=== PATIENT | female | born 1990 | race Two or more races ===

== ENCOUNTER → 2017-08-08 15:00 | Outpatient (CLI) | payer SELFPAY ==
[2017-08-08 15:46] LABS: Hematocrit 40.5 % (37-47); Hemoglobin 12.9 g/dl (12.0-15.0); Mean Corp Hgb Conc 31.9 g/gl (32-36); Mean Corpuscular Hgb 29.2 pg (27.0-32.0); Mean Corpuscular Volume 91.6 fL (81-99); Mean Platelet Vol. 10.7 fl (6.2-12.0); Platelet Count 217 K/mm3 (150-450); RBC Distribution Width SD 43.7 fl (35.1-43.9); Red Blood Count 4.42 M/mm3 (4.2-5.4); White Blood Count 10.8 K/mm3 (4.4-11.0)
[2017-08-08 15:50] LABS: Scan Indicated on CBC? Y/N NO
[2017-08-08 16:16] LABS: Estradiol 28.7 pg/mL; Follicle Stimulating Hormone 5.3 mIU/mL; Prolactin 4.4 ng/mL; Thyroid Stim Hormone (TSH) 0.43 uIU/mL (0.358-3.74)
[2017-08-09 08:59] LABS: Progesterone Level 0.39 ng/mL (See Comment); T3 Total - Triiodothyronine 1.26 ng/mL (0.6-1.81); Vitamin D,25 Hydroxy 16.4 ng/mL (29.95-100.01)
[2017-08-10 05:08] LABS: DHEA Sulfate 238.5 ug/dL (84.8-378.0)
[2017-08-10 09:06] LABS: Sex Hormone-binding Globulin 84.4 nmol/L (24.6-122.0)
[2017-08-12 09:51] LABS: 17-Hydroxyprogesterone 26 ng/dL (.)
== END ==
LOC: LAB.FUTURE 15:21
PROVIDERS: Visit Provider Obstetrics & Gynecology
DX: N92.1 Excessive and frequent menstruation with irregular cycle (principal)
CPT/HCPCS: 36415; 82306; 82533; 82627; 82670; 83001; 83498; 84144; 84146; 84270; 84403; 84439; 84443; 84480; 85027; 82626

== ENCOUNTER → 2017-08-11 08:43 | Outpatient (CLI) | payer OTHER, SELFPAY ==
[2017-08-11 10:17] LABS: Glucose GTT-30 minutes 139 mg/dL (110-170)
[2017-08-11 10:19] LABS: Glucose GTT- Fasting 94 mg/dL (74-106)
[2017-08-11 11:25] LABS: Glucose GTT- 1 Hour 101 mg/dL (120-170)
[2017-08-11 12:03] LABS: Glucose GTT- 2 Hour 109 mg/dL (70-120)
[2017-08-11 13:27] LABS: Insulin 75GTT - 30 MIN 100.4 mU/L (Not Estab.)
[2017-08-12 06:12] LABS: Insulin 75GTT - Fasting 16.3 mU/L (2.6-37.6)
[2017-08-12 06:13] LABS: Insulin 75GTT - 120 min 55.9 mU/L (Not Estab.)
== END ==
PROVIDERS: Visit Provider Obstetrics & Gynecology
DX: N92.1 Excessive and frequent menstruation with irregular cycle (principal)
CPT/HCPCS: 36415; 82951; 82952; 83525

== ENCOUNTER 2017-11-27 16:03 | Emergency (ER) | payer OTHER, SELFPAY ==
[2017-11-27 16:04] VITALS: BP 125/78; PULSE 110; RESP 18; TEMP 37.1; O2SAT 98; BMI 34.4
[2017-11-27 17:18] VITALS: BP 115/78; PULSE 101; RESP 14; O2SAT 98
--- NOTE | 2017-11-27 17:21 | ED.VISSUMM ---
- ER Visit Summary Date of Service: 11/27/17 Chief Complaint: Earache, nasal congestion, postnasal drainage, sore throat and cough History of Present Illness: The patient is a 27 F who presents with upper respiratory type symptoms that started November 23Wednesday. Other family members were ill first. She is a smoker of 2 packs per day down to quarter pack a day. She is and states she is approximately 10 weeks gestation. She does not have a PCP but does have an support team assoc. She denies any double vision, blurred vision loss of vision. She denies any drooling, difficulty swallowing. She does report change in voice. Her cough is nonproductive. Please read written note for complete detail Physical Examination: Vital signs noted and heart rate is elevated 110. When I entered the room she was lying on her right side no distress. She does have a nasal sounding voice. Head is atraumatic normocephalic. Pupils equal round reactive. Extra muscle intact. Sclerae anicteric. Conjunctive is not injected. TMs are normal. There is patent with congestion and clear drainage. Posterior pharynx remarkable postnasal drainage. Uvula midline and there is no erythema or exudate. Trachea is midline without stridor. There is no cervical lymphadenopathy. Heart is regular without murmur, gallop or rub. Lungs are clear to auscultation. Test Results: None are indicated Emergency Department Course and Treatment: Patient was informed because she is a smoker she may have a cough for 4 weeks. She was told it is in her best interest as well as her fetuses best interest that she quit smoking. Treatment Plan: Symptomatic treatment and tobacco information Disposition: Discharged to home Impression: Acute viral upper respiratory infection This note was generated with [employer] dictation software. It may contain incorrect words, spelling, and punctuation that were not noted in review of the chart prior to signing ED Disposition - Plan for ED Patient: Disposition: Home or Assisted Living Chief Complaint: Cold Sx Instructions: ED Upper Resp Infec No Abx Tx, ED Smoking Cessation Referrals: Care Physician,No Primary [Primary Care Provider] - Alannah Zaldivar MD [STAFF PHYSICIAN] - As Needed Additional Instructions: Because you are a smoker you will have a cough for 4 weeks.
[2017-11-27 17:49] VITALS: BP 126/70; PULSE 80; RESP 14; O2SAT 98
== END 2017-11-27 17:50 | disposition home or self-care (01) ==
LOC: ED 17:42
PROVIDERS: Emergency Provider Emergency Medicine
DX: O26.891 Other specified pregnancy related conditions, first trimester (principal); J06.9 Acute upper respiratory infection, unspecified; O99.331 Smoking (tobacco) complicating pregnancy, first trimester; F17.200 Nicotine dependence, unspecified, uncomplicated; O99.211 Obesity complicating pregnancy, first trimester; Z3A.10 10 weeks gestation of pregnancy
CPT/HCPCS: 99282

== ENCOUNTER 2018-03-09 11:40 | Outpatient (CLI) | payer MEDICAID, SELFPAY ==
[2018-03-09 11:48] VITALS: BMI 34.7
[2018-03-09 12:28] LABS: Bacteria 0 SEEN /hpf (None Seen); Mucous, Urine 0 SEEN /hpf (<or=2+); Red Blood Cells-Urine 0 SEEN /hpf (0-5)
[2018-03-09 12:29] LABS: Color, Urine Yellow (Yellow); Glucose, Dipstick Normal (Normal); Ketone-Dipstick Negative (Negative); Leukocyte Esterase-Dipstick Negative /ul (Negative); Nitrite-Dipstick Negative (Negative); Occult Blood-Urine Negative /ul (Negative); Protein-Dipstick Negative (Negative); Specific Gravity, Urine 1.005 (1.002-1.030); Urine Bilirubin Dipstick Negative (Negative); Urine Clarity Sl. Cloudy (Clear); Urine Urobilinogen Normal (Normal)
[2018-03-09 12:39] LABS: Squamous Epithelial Cells - UA 0-5 SEEN /hpf (5-10); White Blood Cells 0-5 SEEN /hpf (0-5)
--- NOTE | 2018-03-10 08:40 | OB.TRI.HP_ITS ---
History of Present Illness Date of Service: 03/09/18 Was patient seen by the physician?: No Reason For Visit: R/O PRE TERM LABOR Date of Service: 03/09/18 Final SAPPHIRE: 06/21/18 Final SAPPHIRE Source: US <20 weeks Gestational age: 25 Weeks and 2 Days History of Present Illness: Complains of low back pain, headaches. Allergies cyclobenzaprine [From Flexeril] Adverse Reaction (Verified 03/09/18 11:54) Vomiting Laboratory Studies: Laboratory Tests 03/09/18 Range/Units 12:15 Urine Color Yellow (Yellow) Urine Clarity Sl. Cloudy (Clear) Urine pH 7.0 (5.0 - 8.0) Ur Specific [place] 1.005 (1.002-1.030) Urine Protein Negative (Negative) mg/dl Urine Glucose (UA) Normal (Normal) mg/dl Urine Ketones Negative (Negative) mg/dl Urine Occult Blood Negative (Negative) /ul Urine Nitrite Negative (Negative) Urine Bilirubin Negative (Negative) mg/dL Urine Urobilinogen Normal (Normal) mg/dl Ur Leukocyte Esterase Negative (Negative) /ul Urine RBC 0 SEEN (0-5) /hpf Urine WBC 0-5 SEEN (0-5) /hpf Ur Squamous Epith Cells 0-5 SEEN (5-10) /hpf Urine Bacteria 0 SEEN (None Seen) /hpf Urine Mucus 0 SEEN (<or=2+) /hpf Physical Exam General: Alert, Oriented x3, Cooperative, No apparent distress Cardiovascular: Regular rate, Regular Rhythm Lungs: Clear to auscultation, Normal air movement Abdomen: Soft, Non Tender, Non-Distended, Gravid, Appropriate for Gestational Age Extremities:: No edema Neurological: Neuro grossly intact COUNTER ATTENDANT: Normal external genitalia Estimated gestational size: Appropriate for gestational size Presentation: Cephalic Cervix Dilation (cm): 0 Station: -3 Effacement (%): 0 NST - FHR Rate Baby A Baseline: 130s Variability:: Moderate Accelerations:: 10 x 10 Decelerations:: None NST Reactive:: Yes, Appropriate for gestational age FHR Category:: Category I Uterine Activity:: None Impression/Plan Cervix closed, no signs of PPROM or contractions. UA negative for infection or blood. Reassuring NST. Headache not severe. Hx of migraines.
--- OUTSIDE RECORDS SUMMARY | 2018-04-25 15:16 | XMS RPT_ITS ---
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 ing:LAB.FUTUR Repository E 07/29/2017/07/31/[id number] Repository PAYERS PAYERS ENCOUNTER GUARANTOR PAYER SUBSCRIBER SOURCE 04/14/2018 ISRAEL Gilbert Primary ISRAELNOMAN Pulido [id number] N Insurance:[facility]: [facility] Number: [id number] [place], [id number] Repository [place] [address]Hzg: Date:2018-04-14[address]ATTN: CLAIMS () [place] [address]SL: 04/14/2018 Secondary NOT GIVENUNK Mears Insurance:SELF PAY [facility] Number: Effective Repository Date:2018-04-14 03/28/2018 ISRAEL M Primary ISRAEL Pulido [id number] N Insurance:[facility]: [facility] Number: [id number] [place], [id number] [place]ository [place] [address]Bqt: Date:2018-03-28 [address]ATTN: CLAIMS () [place] [address]NY: 03/28/2018 Secondary NOT GIVENUNK Ashok Insurance:SELF PAY [facility] Number: Effective Repository Date:2018-03-28 03/09/2018 ISRAEL M Primary ISRAEL Hunt Ashok [id number] N Insurance:CAR[facility]OURCEP [facility] Number: [id number] [place], [id number] Repository [place] [address]Sit: Date:2018-03-09 [address]ATTN: CLAIMS () [place] [address]LX: 03/09/2018 Secondary NOT GIVENUNK Mears Insurance:SELF PAY [facility] Number: Effective Repository Date:2018-03-09 11/27/2017 ISRAEL Hunt Primary ISRAEL Hunt Mears [id number] N Insurance:[employer] [facility] FRONTDOB: [place] [id number] [id number] [place], Number: [place]ository [place] [address]Vyd: [id number] Date:6529-64-87KY [address] () [id number], [place] [address]ZF: 11/27/2017 Secondary NOT GIVENUNK Mears Insurance:SELF PAY [facility] Number: Effective Repository Date:2017-11-27 08/11/2017 ISRAEL M Primary ISRAEL Hunt Mears [id number] N Insurance:[employer] HL[employer] FRONTZDOB: [facility] [address]Wsoade [id number] [place], Number: Repository [place] [address]Nxh: [id number] Date:9067-27-74MX [address] () [address]QSFDQON, [place] [address]QZ: 08/11/2017 Secondary NOT GIVENUNK Mears Insurance:SELF PAY [facility] Number: Effective Repository Date:2017-08-08 08/08/2017 ISRAEL M Primary NOT GIVENUNK Ashok [id number] N Insurance:SELF PAY [facility], Number: [facility] [place] [address]Wcd: Date:2017-08-08 ()
== END 2018-03-09 13:30 | disposition home or self-care (01) ==
LOC: WPOUT 11:46 → WP 11:47
PROVIDERS: Obstetrics & Gynecology; Referring Provider Obstetrics & Gynecology; Visit Provider Obstetrics & Gynecology
DX: O26.892 Other specified pregnancy related conditions, second trimester (principal); R51 Headache; Z3A.25 25 weeks gestation of pregnancy
CPT/HCPCS: 59050; 81001; 99218; G0378

== ENCOUNTER → 2018-03-28 08:47 | Outpatient (CLI) | payer MEDICAID, SELFPAY ==
[2018-03-09 11:48] VITALS: BMI 34.7
[2018-03-28 09:14] LABS: Mucous, Urine 0 SEEN /hpf (<or=2+); Red Blood Cells-Urine 0 SEEN /hpf (0-5); Squamous Epithelial Cells - UA 0 SEEN /hpf (5-10)
[2018-03-28 10:59] LABS: Color, Urine Yellow (Yellow); Glucose, Dipstick 50 mg/dl (Normal); Ketone-Dipstick Negative (Negative); Leukocyte Esterase-Dipstick 100 /ul (Negative); Nitrite-Dipstick Negative (Negative); Occult Blood-Urine Negative /ul (Negative); Protein-Dipstick Negative (Negative); Specific Gravity, Urine 1.015 (1.002-1.030); Urine Bilirubin Dipstick Negative (Negative); Urine Clarity Sl. Cloudy (Clear); Urine Urobilinogen Normal (Normal); Urine pH 6.5 (5.0 - 8.0)
[2018-03-28 10:59] LABS: Hematocrit 33.3 % (37-47); Hemoglobin 10.7 g/dl (12.0-15.0); Mean Corp Hgb Conc 32.1 g/gl (32-36); Mean Corpuscular Hgb 30.3 pg (27.0-32.0); Mean Corpuscular Volume 94.3 fL (81-99); Mean Platelet Vol. 11.4 fl (6.2-12.0); Platelet Count 195 K/mm3 (150-450); RBC Distribution Width CV 12.4 % (11.6-14.6); RBC Distribution Width SD 41.5 fl (35.1-43.9); Red Blood Count 3.53 M/mm3 (4.2-5.4); White Blood Count 11.7 K/mm3 (4.4-11.0)
[2018-03-28 11:00] LABS: Scan Indicated on CBC? Y/N NO
[2018-03-28 11:01] LABS: Bacteria 1+ /hpf (None Seen); Calcium Oxalate Crystals Ur RARE /hpf (<or=2+); Renal Epithelial Cells 0-5 SEEN /hpf (0-5); White Blood Cells 0-5 SEEN /hpf (0-5); Yeast-Urine RARE /hpf (None Seen)
[2018-03-28 11:02] LABS: Glucose Challenge Gest 1H 50g 127 mg/dL (70-140)
== END ==
PROVIDERS: Visit Provider Obstetrics & Gynecology
DX: O26.893 Other specified pregnancy related conditions, third trimester (principal); R30.0 Dysuria; Z3A.00 Weeks of gestation of pregnancy not specified
CPT/HCPCS: 36415; 81001; 82950; 85027; 87086; 87088

== ENCOUNTER → 2018-04-14 15:26 | Outpatient (CLI) | payer MEDICAID, SELFPAY ==
[2018-04-14 16:12] LABS: Protein, Urine (Random) 15.6 mg/dL (<11.9)
[2018-04-14 17:28] LABS: ALB/GLOB Ratio 0.6 RATIO (0.9-2.4); AST(SGOT) 8 U/L (15-37); Alanine Aminotransfer ALT/SGPT 11 U/L (13-56); Albumin, Serum 2.7 g/dL (3.2-5.0); Alkaline Phosphatase 107 U/L (45-117); Anion Gap 11 (5-15); BUN 4 mg/dL (7-18); BUN/Creat Ratio 7.5 RATIO (10-20); Calcium,Total 8.4 mg/dL (8.5-10.1); Chloride 107 mmol/L (98-107); Creatinine, Serum 0.53 mg/dL (0.55-1.02); EST Glomerular Filtration Rate 147 mL/min (>60); Est Glom Filt Rate - Afr Amer 178 mL/min (>60); Globulin 4.2 g/dL (2.2-4.2); Glucose 143 mg/dL (74-106); LDH 183 U/L (84-246); Potassium 3.5 mmol/L (3.5-5.1); Protein, Total 6.9 g/dL (6.4-8.2); Sodium Level 138 mmol/L (136-145); Uric Acid 3.1 mg/dL (2.6-6.0)
--- OUTSIDE RECORDS SUMMARY | 2018-06-19 11:05 | XMS RPT_ITS ---
:1990 Author Organization OHIP Support Name Relationship Address Phone MAURY PAYNE Unavailable [address] + [place] [address] [employer] Unavailable [address] + [place] [phone] MAURY PAYNE Unavailable [address] + [place] [address] [employer] Unavailable [address] + [place] [phone] MAURY PAYNE Unavailable [address] + [facility] [place] [address] [employer] Unavailable [address] + [place] [phone] MAURY PAYNE Unavailable [address] + [place] [address] [employer] Unavailable [address] + [place] [address] MAURY PAYNE Unavailable [address] + [place] [address] [employer] Unavailable [address] + [place] [phone] MAURY PAYNE Unavailable [address] [phone] [place] [address] [employer] Unavailable [address] + [place] [address] MAURY PAYNE Unavailable [address] [phone] [place] [address] [employer] Unavailable . +. [place] [address] Care Team Providers Name Role Phone CECILIA HOUSTON Attending Unavailable CECILIA HOUSTON Referring Unavailable Marianne Babcock Attending Unavailable Marianne Babcock Referring Unavailable Primay Care Physicia, No Primary Care Unavailable LiuFarzana, Summer Attending Unavailable Primay Care Physicia, No Primary Care Unavailable LiuKeira, Summer Attending Unavailable Primay Care Physicia, No Primary Care Unavailable KekealexBandar Attending Unavailable Primay Care Physicia, No Primary Care Unavailable Liu-Kenny, Summer Attending Unavailable DOCTOR, OUT OF TOWN Primary Care Unavailable LiuKeira, Summer Attending Unavailable Liu-Kenny, Summer Referring Unavailable Primay Care Physicia, No Primary Care Unavailable Primay Care Physicia, No Primary Care Unavailable Rios, Daniel Attending Unavailable PROBLEMS PROBLEMS DATE TYPE CONDITION / CODE ATTENDING STATUS SOURCE 04/14/2018 Unknown Z34.83 - Encounter Kayley, Active [place] for supervision of [facility] normal Hospital , third Repository trimester / Z34.83(ICD-10) 04/14/2018 Unknown R51 - Headache / Kayley, Active [place] R51(ICD-10) [facility] Hospital Repository 04/14/2018 Unknown O12.03 - Alexa-Kenny, Active [place] Gestational edema, [facility] third trimester / Hospital O12.03(ICD-10) Repository 04/14/2018 Unknown O21.1 - Kayley, Active [place] Hyperemesis [facility] gravidarum with Hospital metabolic Repository disturbance / O21.1(ICD-10) 03/28/2018 Unknown Z34.82 - Encounter Kayley, Active [place] for supervision of [facility] normal Hospital , second Repository trimester / Z34.82(ICD-10) 08/08/2017 Unknown N92.1 - Excessive Alexa-Kenny, Active [place] and frequent [facility] menstruation with Hospital irregular cycle / Repository N92.1(ICD-10) PROCEDURES PROCEDURES No Procedure Records FoundRESULTS RESULTS URINALYSIS, COMPLETE Collected: 04/20/2018 Status: F Source: [place] 7:35 PM [facility] REPOSITORY Order Comment: How was Urine Obtained? PRODUCTION EDITOR TO SPECIFY TYPE CODE TESTS RESULT OUT OF RANGE REFERENCE UNITS LAB L400.3000 Yellow COLOR Normal Yellow LAB L400.3050 Clear Normal CLARITY Clear LAB L400.3200 Normal mg/dl Normal GLUCOSE, UR Normal LAB L400.3300 Negative mg/dL Normal BILIRUBIN URINE Negative LAB L400.3400 Negative mg/dl High 50 KETONE UR LAB L400.3465 1.002-1.030 Normal SP.GR. DIPSTX 1.015 LAB L400.3550 5.0 - 8.0 pH UR Normal 6.5 LAB L400.3600 Negative mg/dl High PROT 15 DIPSTX LAB L400.3700 Normal mg/dl High 4 UROBILI LAB L400.3750 Negative Normal NITRITE UR Negative LAB L400.3780 Negative /ul Normal OCCULT BLOOD-UR Negative LAB L400.3800 Negative /ul High LEUK 25 ESTERASE LAB L400.4050 0-5 /hpf WBC 0 Normal SEEN LAB L400.4100 0-5 /hpf 0 Normal RBC-UA SEEN LAB L400.4150 5-10 /hpf SQUAM Normal EPI 0-5 SEEN LAB L400.4300 None Seen /hpf Normal BACTERIA RARE LAB L400.4350 <or=2+ /hpf 0 Normal MUCUS, URINE SEEN Performed By: #### L400.0001 #### [facility] [address] [place], [address] (ROM) RUPTURE OF Collected: 04/20/2018 Status: F Source: [place] [facility] 7:25 PM [facility] [place] TYPE CODE TESTS RESULT OUT OF RANGE REFERENCE UNITS LAB L205.1310 Negative Normal ROM Negative Result Comment: Amniotic fluid not present indicates No Rupture of Membranes at time of specimen collection. Performed By: #### L205.1000 #### [facility] [address] [place], [address] CREATININE, URINE Collected: 04/14/2018 Status: F Source: [place] (RANDOM) 2:30 PM [facility] [place] [facility] TYPE CODE TESTS RESULT OUT OF RANGE REFERENCE UNITS LAB L501.1200 NO RANGE EST. mg/dL Normal UR CREAT 107.00 Performed By: #### L501.1200, L501.1930 #### [facility] [address] [facility] [place], [address] PROTEIN, URINE Collected: 04/14/2018 Status: F Source: [place] (RANDOM) 2:30 PM [facility] [place] TYPE CODE TESTS RESULT OUT OF RANGE REFERENCE UNITS LAB L501.1930 <11.9 mg/dL High 15.6 PROTEIN,UR.R AN. Performed By: #### L501.1200, L501.1930 #### [facility] [address] [place], [place], [address] COMPREHENSIVE METABOLIC Collected: 04/14/2018 Status: F Source: [place] CROOKS 2:30 PM [facility] [place] Order Comment: Serial Specimen #1, #2 [...] Performed By: #### L500.4050, L501.1400, L504.2610 #### [facility] [address] [place], [address] URIC ACID Collected: 04/14/2018 Status: F Source: [place] 2:30 PM [facility] [place] Order Comment: Serial Specimen #1, #2 or #3? 1 TYPE CODE TESTS RESULT OUT OF RANGE REFERENCE UNITS LAB L501.1400 2.6-6.0 mg/dL Normal URIC 3.1 Result Comment: The drugs N-Acetylcysteine and Metamizole may falsely depress this assay. Performed By: #### L500.4050, L501.1400, L504.2610 #### [facility] [address] [place], [address] LDH Collected: 04/14/2018 Status: F Source: [place] 2:30 PM [facility] [place] Order Comment: Serial Specimen #1, #2 or #3? 1 TYPE CODE TESTS RESULT OUT OF RANGE REFERENCE UNITS LAB L504.2610 84-246 U/L Normal LDH 183 Performed By: #### L500.4050, L501.1400, L504.2610 #### [facility] [address] [place], [address] URINALYSIS, COMPLETE Collected: 03/28/2018 Status: F Source: [place] 9:00 AM [facility] [place] Order Comment: How was Urine Obtained? [...] YEAST-URINE RARE Performed By: #### L400.0001 #### [facility] [address] [place], [address] Observed: 03/28/2018 Status: F Source: [place] CULTURE, URINE 9:00 AM [facility] [place] [facility] Urine Culture ORGANISM 1: Mixed Gram Positive Organisms [place] Count 11,000-25,000 MIX CULTURE Mixed contaminants. Submit a new specimen if indicated. Performed By: #### M100.0650 #### [facility] [address] [place], [place], [address] CBC-COMPLETE BLOOD CNT Collected: 03/28/2018 Status: F Source: [place] NO DIFF 8:56 AM [facility] [place] TYPE CODE TESTS RESULT OUT OF [...] MPV 11.4 Performed By: #### L100.0500 #### [facility] [address] [place], [address] GLUCOSE CHALLENGE GEST Collected: 03/28/2018 Status: F Source: [place] 1H 50G 8:56 AM [facility] [place] TYPE CODE TESTS RESULT OUT OF RANGE REFERENCE UNITS LAB L501.0250 70-140 mg/dL Normal GLU GEST 127 50g 1H Performed By: #### L501.0250 #### [facility] [address] [place], [address] URINALYSIS, COMPLETE Collected: 03/09/2018 Status: F Source: [place] 12:15 PM [facility] [place] Order Comment: How was Urine Obtained? PRODUCTION EDITOR TO SPECIFY TYPE CODE TESTS RESULT OUT [...] URINE SEEN Performed By: #### L400.0001 #### [facility] [address] [place], [address] EMERGENCY DEPARTMENT Observed: 11/27/2017 Status: F Source: [place] SUMMARY 5:26 PM [facility] [place] [facility] Medical Records Department [address] [place] [address] Emergency Department Summary 11/27/17 1721 MR#: [id number] Acct: [id number] Name: ISRAEL PAYNE Rep #: [id number] : 1990 From: Daniel Rios MD PCP: [...] have a PCP but does have an cash applications specialist. She denies any double vision, blurred vision [...] respiratory infection This note was generated with [employer] dictation software. It may contain incorrect words, [...] your Primary Care Provider. Call [facility] ([phone]) or report to the closest Emergency Room. Call 911 if necessary. 11/27/17 1726 <Electronically signed by Daniel Rios MD> Date Daniel Rios MD Cosigner Signature (If Indicated): Date CC: No Primary Care Physician; Alannah Zaldivar MD 2 HR GLUCOSE TOLERANCE Collected: 08/11/2017 Status: F Source: [place] TEST 8:49 AM [facility] [place] Order Comment: Is Patient Fasting? Y [...] HOUR 109 Performed By: #### L500.4600 #### [facility] [address] [place], [place], [address] 2 HR INSULIN - 75 GM Collected: 08/11/2017 Status: F Source: [place] 8:49 AM [facility] [place] TYPE CODE TESTS RESULT OUT OF [...] Not Estab Performed By: #### L503.8055 #### [facility] [address] [place], [place], [address] CBC-COMPLETE BLOOD CNT Collected: 08/08/2017 Status: F Source: [place] NO DIFF 3:24 PM [facility] [place] TYPE CODE TESTS RESULT OUT OF [...] MPV 10.7 Performed By: #### L100.0500 #### [facility] [address] [place], [place], [address] THYROID STIM HORMONE Collected: 08/08/2017 Status: F Source: [place] (TSH) 3:24 PM [facility] [place] TYPE CODE TESTS RESULT OUT OF RANGE REFERENCE UNITS LAB L501.9520 0.358-3.74 uIU/mL Normal TSH 0.43 Performed By: #### L501.9520, L506.0400, L3100.5125, L3100.5420, L3300.1750 #### [facility] [address] [facility] [place], [address] T4 FREE DIRECT Collected: 08/08/2017 Status: F Source: [place] 3:24 PM [facility] [place] TYPE CODE TESTS RESULT OUT OF RANGE REFERENCE UNITS LAB L506.0400 0.76-1.46 ng/dL Normal T4 FREE 1.10 DIRECT Performed By: #### L501.9520, L506.0400, L3100.5125, L3100.5420, L3300.1750 #### [facility] [address] [facility] [address] [place], [place], [address] FOLLICLE STIMULATING Collected: 08/08/2017 Status: F Source: [place] HORMONE 3:24 PM [facility] [place] TYPE CODE TESTS RESULT OUT OF [...] #### L501.9520, L506.0400, L3100.5125, L3100.5420, L3300.1750 #### [facility] [address] [place], [address] PROLACTIN Collected: 08/08/2017 Status: F Source: [place] 3:24 PM [facility] [place] TYPE CODE TESTS RESULT OUT OF RANGE REFERENCE UNITS LAB L3100.5420 ng/mL Normal PROLACTIN 4.4 Result Comment: NORMAL REFERENCE RANGES FEMALE NON- 2.2 - 30.3 ng/mL 8.1 - 347.6 ng/mL POST-MENOPAUSAL 0.7 - 31.5 ng/mL MALE 2.5 - 17.4 ng/mL NEW TEST METHOD AND REFERENCE RANGES AUGUST 17, 2011 Performed By: #### L501.9520, L506.0400, L3100.5125, L3100.5420, L3300.1750 #### [facility] [address] [place], [address] ESTRADIOL Collected: 08/08/2017 Status: F Source: [place] 3:24 PM [facility] [place] TYPE CODE TESTS RESULT OUT OF [...] #### L501.9520, L506.0400, L3100.5125, L3100.5420, L3300.1750 #### [facility] [address] [place], [address] T3 TOTAL - TRIIODOTHYRONINE Collected: 08/08/2017 Status: F Source: [place] 3:24 PM [facility] [place] TYPE CODE TESTS RESULT OUT OF RANGE REFERENCE UNITS LAB L501.9186 0.6-1.81 ng/mL Normal T3 Total 1.26 Performed By: #### L501.9186, L506.1000, L509.3000, L509.4001, L509.6000 #### [facility] [address] [place], [address] VITAMIN D,25 HYDROXY Collected: 08/08/2017 Status: F Source: [place] 3:24 PM [facility] [place] TYPE CODE TESTS RESULT OUT OF REFERENCE UNITS RANGE LAB L506.1000 29.95-100.01 ng/mL Low Vitamin D 16.4 25-OH Result Comment: Vitamin D 25(OH) Status Range Deficiency <20 ng/mL (50nmol/L) Insuffciency 20 - 30 ng/mL (50 - 75 nmol/L) Sufficiency 30 - 100 ng/mL (75 - 250 nmol/L) Toxicity >100 ng/mL (>250 nmol/L) Performed By: #### L501.9186, L506.1000, L509.3000, L509.4001, L509.6000 #### [facility] [address] [place], [address] TESTOSTERONE, SERUM TOTAL Collected: 08/08/2017 Status: F Source: [place] 3:24 PM [facility] [place] TYPE CODE TESTS RESULT OUT OF [...] #### L501.9186, L506.1000, L509.3000, L509.4001, L509.6000 #### [facility] [address] [place], [address] PROGESTERONE LEVEL Collected: 08/08/2017 Status: F Source: [place] 3:24 PM [facility] [place] TYPE CODE TESTS RESULT OUT OF [...] #### L501.9186, L506.1000, L509.3000, L509.4001, L509.6000 #### [facility] [address] [place], [place], [address] CORTISOL SERUM Collected: 08/08/2017 Status: F Source: [place] 3:24 PM [facility] [place] TYPE CODE TESTS RESULT OUT OF RANGE REFERENCE UNITS LAB L509.6000 3.09-22.40 ug/dL Normal CORTISOL 8.70 Result Comment: Adult (AM) 4.30 - 22.40 ug/dL Adult (PM) 3.09 - 16.66 ug/dL Performed By: #### L501.9186, L506.1000, L509.3000, L509.4001, L509.6000 #### [facility] [address] [place], [place], [address] SEX HORMONE-BINDING Collected: 08/08/2017 Status: F Source: [place] GLOBULIN 3:24 PM [facility] [place] Order Comment: Has Patient had Radioactive Injection for X-ray?: N TYPE CODE TESTS RESULT OUT OF RANGE REFERENCE UNITS LAB L3100.5060 24.6-122.0 nmol/L Normal SHBG 84.4 Result Comment: Performed at: - [facility] [id number] Loss Prevention Coordinator: Chepe Laws PhD, Phone: [phone] Performed By: #### L31005060, Z1508.3859 #### [facility] (refer to report for specific site) refer to report for address and phone number DHEA SULFATE Collected: 08/08/2017 Status: F Source: [place] 3:24 PM [facility] [place] Order Comment: Has Patient had Radioactive Injection for X-ray?: N TYPE CODE TESTS RESULT OUT OF RANGE REFERENCE UNITS LAB L3300.1500 84.8-378.0 ug/dL Normal DHEA SULF 238.5 4020 Performed By: #### L3100.5060, L3300.1500 #### [facility] (refer to report for specific site) refer to report for address and phone number [phone] Collected: Status: F Source: [place] 08/08/2017 3:24 PM [facility] [place] [facility] Order Comment: Has Patient had Radioactive Injection for X-ray?: N TYPE CODE TESTS RESULT OUT OF RANGE REFERENCE UNITS LAB L3100.9000 . ng/dL Normal HYDROXPROG 17 26 Result Comment: Adult Female Follicular 15 - 70 Luteal 35 - 290 This test was developed and its performance characteristics determined by [employer]. It has not been cleared or approved by the Food and Drug Administration. Performed at: [address] [id number] Loss Prevention Coordinator: Jerome Poon MD, Phone: [phone] Performed By: #### L3100.9000 #### [facility] (refer to report for specific site) refer to report for address and phone number PROGRESS Observed: 07/29/2017 Status: COMPLETED Source: [place] 2:05 PM [facility] REPOSITORY HNO ID: [id number] Author: Cecilia Houston Service: (none) Author Type: Physician Type: Progress [...] Date - PAST SURGICAL HISTORY OF 11/2014 DANWV - TONSILLECTOMY AND ADENOIDECTOMY HX Social History [...] NAME / CODE REACTION SEVERITY SOURCE CODE 04/20/2018 Drug cyclobenzaprine/F0060 Vomiting Unknown [place] Allergy/41 [address](RXNORM) [facility] 3443221( Hospital OME CT) Repository 06/24/2015 DRUG CYCLOBENZAPRINE HCL Vomiting [facility] INGREDI/[address] [place] [address]( [facility] ENCOUNTERS ENCOUNTERS ADMIT/DISCHARGE ACCOUNT ADMITTING ENCOUNTER LOCATION SOURCE NUMBER CLASS 04/20/2018/04/20/[id number] ing:WPOUTRoom Repository : [id number] 04/14/2018 [id number] [facility] ing:LABSPEC Repository 03/28/2018 [id number] [facility] ing:WOBLAB Repository 03/09/2018/03/09/[id number] ing:WPOUTRoom Repository : WP020 11/27/2017/11/28/19 [id number] Emergency [address] ing:ED Repository 08/11/2017 [id number] [facility] ing:LAB.FUTUR Repository E 08/08/2017 [id number] [facility] ing:LAB.FUTUR Repository E 07/29/2017/07/31/19 [id number] Ambulatory [address] Repository PAYERS PAYERS ENCOUNTER GUARANTOR PAYER SUBSCRIBER SOURCE 04/20/2018 ISRAEL Hunt Primary ISRAEL O[place] [id number] Insurance:CARESOURCEP FRONTZDOB: [facility] Number: [id number] [id number] [place]ository [place] [address]Ugh: Date:2018-04-20[address]ATTN: CLAIMS () [place] [address]UU: 04/20/2018 Secondary NOT GIVENUNK [place] Insurance:SELF PAY [facility] Number: Effective Repository Date:2018-04-20 04/14/2018 ISRAEL Hunt Primary ISRAEL Gilbert [place] [id number] Insurance:CARESOURCEP FRONTZDOB: [facility] Number: [id number], [id number] Repository [place] [address]Wgo: Date:2018-04-14[address]ATTN: CLAIMS (HP) [place] [address]KP: 04/14/2018 Secondary NOT GIVENUNK [place] Insurance:SELF PAY [facility] Number: Effective Repository Date:2018-04-14 03/28/2018 ISRAEL M Primary ISRAEL Gilbert [place] [id number] Insurance:CARESOURCEP [facility] FLINTZDOB: [facility] Number: [id number], [id number] [place]ository [place] [address]Fiq: Date:2018-03-28 [address]ATTN: CLAIMS () [place] [address]VG: 03/28/2018 Secondary NOT GIVENUNK [place] Insurance:SELF PAY [facility] Number: Effective Repository Date:2018-03-28 03/09/2018 ISRAEL M Primary ISRAEL Gilbert [place] [id number] Insurance:CARESOURCEP FRONTZDOB: [facility] Number: [id number], [id number] Repository [place] [address]Gtg: Date:2018-03-09 [address]ATTN: CLAIMS (HP) [place] [address]MI: 03/09/2018 Secondary NOT GIVENUNK [place] Insurance:SELF PAY [facility] Number: Effective Repository Date:2018-03-09 11/27/2017 ISRAEL M Primary ISRAEL Gilbert [place] [id number] Insurance:[facility] FRONTZDOB: [facility] [address]Wmmumu [id number] Community Hospital, Number: Repository [place] [address]Igo: [id number] Date:7765-79-31[address] () [address], [place] [address]XM: 11/27/2017 Secondary NOT GIVENUNK [place] Insurance:SELF PAY [facility] Number: Effective Repository Date:2017-11-27 08/11/2017 ISRAEL Hunt Primary ISRAEL M [place] [id number] Insurance:[facility] FRONTZDOB: [facility] [address]Gcpolf [id number] Community Hospital, Number: Repository [place] [address]Stw: [id number] Date:4677-28-01[address] ) [address], [place] [address]FV: 08/11/2017 Secondary NOT GIVENUNK [place] Insurance:SELF PAY [facility] Number: Effective Repository Date:2017-08-08 08/08/2017 ISRAEL Hunt Primary NOT GIVENUNK [place] [id number] Insurance:SELF PAY [facility], Number: Effective Repository [place] [address]Hqj: Date:2017-08-08 (IB)
== END ==
PROVIDERS: Visit Provider Obstetrics & Gynecology
DX: O12.03 Gestational edema, third trimester (principal); O21.0 Mild hyperemesis gravidarum; O26.893 Other specified pregnancy related conditions, third trimester; R51 Headache; Z3A.00 Weeks of gestation of pregnancy not specified
CPT/HCPCS: 80053; 82570; 83615; 84156; 84550

== ENCOUNTER 2018-04-20 18:35 | Outpatient (CLI) | payer MEDICAID, SELFPAY ==
[2018-04-20 19:06] VITALS: BMI 35.1
[2018-04-20 19:40] LABS: Mucous, Urine 0 SEEN /hpf (<or=2+); Red Blood Cells-Urine 0 SEEN /hpf (0-5); White Blood Cells 0 SEEN /hpf (0-5)
[2018-04-20 19:55] LABS: ROM Internal Control Test YES-OK TO RESULT pt. (Internal QC); ROM Patient Test Negative (Negative)
[2018-04-20 19:59] LABS: Color, Urine Yellow (Yellow); Glucose, Dipstick Normal (Normal); Ketone-Dipstick 50 mg/dl (Negative); Leukocyte Esterase-Dipstick 25 /ul (Negative); Nitrite-Dipstick Negative (Negative); Occult Blood-Urine Negative /ul (Negative); Protein-Dipstick 15 mg/dl (Negative); Specific Gravity, Urine 1.015 (1.002-1.030); Urine Bilirubin Dipstick Negative (Negative); Urine Clarity Clear (Clear); Urine Urobilinogen 4 mg/dl (Normal); Urine pH 6.5 (5.0 - 8.0)
[2018-04-20 20:32] LABS: Bacteria RARE /hpf (None Seen); Squamous Epithelial Cells - UA 0-5 SEEN /hpf (5-10)
--- NOTE | 2018-04-21 00:29 | OB.TRI.HP_ITS ---
History of Present Illness Date of Service: 04/20/18 Was patient seen by the physician?: No Reason For Visit: R/O CONTRACTIONS Date of Service: 04/20/18 Final SAPPHIRE: 06/21/18 Final SAPPHIRE Source: US <20 weeks Gestational age: 31 Weeks and 2 Days History of Present Illness: Reports possible leaking of fluid from the vagina Allergies cyclobenzaprine [From Flexeril] Adverse Reaction (Verified 04/20/18 19:02) Vomiting Laboratory Studies: Laboratory Tests 04/20/18 04/20/18 Range/Units 19:35 19:25 Urine Color Yellow (Yellow) Urine Clarity Clear (Clear) Urine pH 6.5 (5.0 - 8.0) Ur Specific [place] 1.015 (1.002-1.030) Urine Protein 15 H (Negative) mg/dl Urine Glucose (UA) Normal (Normal) mg/dl Urine Ketones 50 H (Negative) mg/dl Urine Occult Blood Negative (Negative) /ul Urine Nitrite Negative (Negative) Urine Bilirubin Negative (Negative) mg/dL Urine Urobilinogen 4 H (Normal) mg/dl Ur Leukocyte Esterase 25 H (Negative) /ul Urine RBC 0 SEEN (0-5) /hpf Urine WBC 0 SEEN (0-5) /hpf Ur Squamous Epith Cells 0-5 SEEN (5-10) /hpf Urine Bacteria RARE (None Seen) /hpf Urine Mucus 0 SEEN (<or=2+) /hpf Vag Amniotic Fld Detect Negative (Negative) Physical Exam General: Alert, Oriented x3, Cooperative, No apparent distress Cardiovascular: Regular rate, Regular Rhythm Lungs: Clear to auscultation, Normal air movement Abdomen: Soft, Non Tender, Non-Distended, Gravid, Appropriate for Gestational Age Extremities:: No edema Neurological: Neuro grossly intact INSIDE SALES ADVISOR: Normal external genitalia Estimated gestational size: Appropriate for gestational size Presentation: Cephalic NST - FHR Rate Baby A Baseline: 130s Variability:: Moderate Accelerations:: 15 x 15 Decelerations:: None NST Reactive:: Yes, Appropriate for gestational age FHR Category:: Category I Uterine Activity:: none Impression/Plan ROM+ testing negative with no signs of PPROM. FHR tracing appropriate.
== END 2018-04-20 20:15 | disposition home or self-care (01) ==
LOC: WPOUT 18:39 → OBT 18:40
PROVIDERS: Visit Provider Obstetrics & Gynecology
DX: Z34.93 Encounter for supervision of normal pregnancy, unspecified, third trimester (principal)
CPT/HCPCS: 59025; 59050; 81001; 84112; 99218; G0378

== ENCOUNTER 2018-05-02 12:30 | Outpatient (RCR) | payer MEDICAID, SELFPAY ==
--- NOTE | 2018-04-28 11:34 | HP.PTEVAL ---
Patient's Visit Information ISRAEL PAYNE is a 28 year old F referred to Physical Therapy by Alannah Zaldivar MD with a diagnosis of Pelvic girdle apin. Date of Evaluation: 04/28/18 Physical Therapist: Tobin Mares DPT, OCS, CSCS - Visit Plan Frequency: 3x /Week Duration: 4-6 Weeks Plan: 3x/week for 3-6 weeks for pool based. core strength, HS and quad stretch, LB ROM and general ex. Monitor home based ext L/ S exercises and posture effect on pain. pt is at 32 weeks. - Subjective Findings: LBP and everything hurts. Has always had LBP, has bulging lumbar disc since 2014. Did water therapy at the time with her son. Now 32 weeks. Worse pain in LB for 3-4 months and been doing some things she can remember from the pool. Pain is in LB and 10/10, can be 0/10. Waking up in the morning will tell how she feels. Hips also hurt down back of legs normally from LB but worse intensity lately. 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 Spends day runniing after 10 yo and 3 yo. Sleep is not good as she is uncomfortable all the time, uses pillow between knees and under side. Has constant pelvic girdle pain in front from also, back pain is the worst part of it. - Pain LBP Pain Intensity (Out of 10): 0 Pain Intensity Range: 0, 10 - Objective Posture is forward head and slight increased lordosis. No tenderness to palpation in Low back tissue today. LB ROM ext painful and mod limited. Flexion is fulla nd painfree. SB are minimally limited and ewithout pain today. reflexes 2/3 patella and achilles. Sensation WNL to gross light touch in LE. Strength LE 4+/5 without myotomal abnormalities. Nothing increases any pelvic pain today as far as pressure testing at SI. - slump and - slr. core is 3+/5 strength. HS mod tight at -30 90/90 test. quads mod tight. - Goals Goal 1:: Patient feel pain 50% better to 5/10 at worst adn manageable. Goal Time Frame: 4-6 Weeks Goal 2:: patient I in approp HEP to minimize future problems. Goal Time Frame: 4-6 Weeks Goal 3:: Sleep without discomfort at night 75% of time. Goal Time Frame: 4-6 Weeks - Rehabilitation Potential Physical Therapy Diagnosis: LBP making it worse Rehabilitation Potential: Fair - Anticipated Interventions Patient/Client Instruction: Educate patient on: Condition, Plan of Care For the Purpose of:: To decrease pain, To increase ROM Therapeutic Exercise to Include: Strength training, Flexibilty training, In an aquatic setting, Passive ROM, Active ROM, Dynamic Lumbar Stabilization For the Purpose of:: To decrease pain, To improve nutrient delivery to tissue, To improve muscle performance and motor function, To improve ability of physical actions for home/community/work/leisure Thank you for the opportunity to evaluate your patient. For Medicare and Medicare HMO plans, please review the plan of care and approve it. It will need to be FAXED BACK to us at [phone] for Medicare purposes. For Medicare only, by signing this I certify the plan of care. Please let me know if there are questions or concerns regarding this plan of care. Physician Signature: Date:
--- NOTE | 2018-05-10 13:52 | HP.PTDCSUM ---
HP - PT D/C Summary It has been my pleasure to treat ISRAEL PAYNE under orders from Alannah Zaldivar MD, for the diagnosis of Pelvic girdle apin for a total of 2 visit(s). Discharge Date: 05/10/18 Please see the following information for a summary of their discharge status. - Subjective Subjective: Pt has called to cancel all appointments without reason given. - Pain LBP Pain Intensity (Out of 10): 6 pelvis pain Pain Intensity (Out of 10): 6 - Objective Objective/Function: pt is very painful today, moving slowly, FW bent posture. pt had significant pain reduction after being in the 6ft water. pt happy w/ the relief. - Goals Goal 1:: Patient feel pain 50% better to 5/10 at worst adn manageable. Goal 2:: patient I in approp HEP to minimize future problems. Goal 3:: Sleep without discomfort at night 75% of time. - Plan Plan: D/C at patients request. - D/C Information Discharge Comments: Pt has called to cancel all visits without reason, she has only attended one. If there are questions or concerns regarding this patient's physical therapy, please feel free to call me at [phone]. Thank you for the referral of this patient. Sincerely, Tobin Mares, DPT, OCS, CSCS
== END 2018-05-02 19:00 | disposition home or self-care (01) ==
LOC: PT 12:30
PROVIDERS: Referring Provider Obstetrics & Gynecology; Visit Provider Obstetrics & Gynecology
DX: O99.89 Other specified diseases and conditions complicating pregnancy, childbirth and the puerperium (principal)
CPT/HCPCS: 97113; 97162

== ENCOUNTER → 2018-05-12 14:31 | Outpatient (CLI) | payer MEDICAID, SELFPAY ==
[2018-04-20 19:06] VITALS: BMI 35.1
== END ==
PROVIDERS: Visit Provider Obstetrics & Gynecology
DX: Z36.85 Encounter for antenatal screening for Streptococcus B (principal)
CPT/HCPCS: 87081

== ENCOUNTER 2018-05-30 12:00 | Outpatient (CLI) | payer MEDICAID, SELFPAY ==
[2018-05-30 12:22] VITALS: BMI 35.3
[2018-05-30] MEDS: Betamethasone/Betamethasone 30 MG/5 ML Vial 12 MG IM (15:57)
--- NOTE | 2018-05-30 18:21 | OB.TRI.NOTE ---
- Problem List (1) with 36 to 37 weeks completed gestation Status: Acute (2) False labor before 37 completed weeks of gestation Status: Acute History of Present Illness Date of Service: 05/30/18 Was patient seen by the physician?: Yes Reason For Visit: R/O LABOR Final SAPPHIRE: 06/21/18 Final SAPPHIRE Source: US <20 weeks Gestational age: 36 Weeks and 6 Days History of Present Illness: 28yo @ 36 6/7wga sent from office for 4+ cm dilation and contractions. Allergies cyclobenzaprine [From Flexeril] Adverse Reaction (Verified 04/20/18 19:02) Vomiting Physical Exam DECORATOR STORE: Normal external genitalia Estimated gestational size: Appropriate for gestational size Presentation: Cephalic Cervix Dilation (cm): 4.5 Station: -3 Effacement (%): 70 NST - FHR Rate Baby A Baseline: 120 Variability:: Moderate Accelerations:: 15 x 15 Decelerations:: None NST Reactive:: Yes FHR Category:: Category I Uterine Activity:: 2-10 min Impression/Plan False labor at 36 6/7wga No cervical change consultant approximately 6 hours (including office exam) BMZ x 1 given Repeat BMZ tomorrow morning Will d/c home
--- NOTE | 2018-05-30 18:26 | OB.TRI.HP_ITS ---
- Problem List (1) with 36 to 37 weeks completed gestation Status: Acute (2) False labor before 37 completed weeks of gestation Status: Acute History of Present Illness Date of Service: 05/30/18 Was patient seen by the physician?: Yes Reason For Visit: R/O LABOR Final SAPPHIRE: 06/21/18 Final SAPPHIRE Source: US <20 weeks Gestational age: 36 Weeks and 6 Days History of Present Illness: 28yo @ 36 6/7wga sent from office for 4+ cm dilation and contractions. 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
== END 2018-05-30 17:50 | disposition home or self-care (01) ==
LOC: WPOUT 12:05 → OBT 12:05
PROVIDERS: Referring Provider Obstetrics & Gynecology; Visit Provider Obstetrics & Gynecology
DX: O47.03 False labor before 37 completed weeks of gestation, third trimester (principal); Z3A.36 36 weeks gestation of pregnancy; Z34.83 Encounter for supervision of other normal pregnancy, third trimester
CPT/HCPCS: 59025; 59050; 84112; 99218; G0378; J0702

== ENCOUNTER → 2018-05-30 12:07 | Outpatient (CLI) | payer MEDICAID, SELFPAY ==
[2018-05-30 12:42] LABS: ROM Internal Control Test YES-OK TO RESULT pt. (Internal QC); ROM Patient Test Negative (Negative); Record Kit Lot#, ROM+ J7836
== END ==
PROVIDERS: Visit Provider Obstetrics & Gynecology
DX: Z34.83 Encounter for supervision of other normal pregnancy, third trimester (principal)
CPT/HCPCS: 84112

== ENCOUNTER 2018-05-31 12:50 | Outpatient (CLI) | payer MEDICAID, SELFPAY ==
[2018-05-31 12:54] VITALS: BMI 35.1
[2018-05-31 12:59] VITALS: BMI 35.5
[2018-05-31] MEDS: Betamethasone/Betamethasone 30 MG/5 ML Vial 12 MG IM (13:12)
--- NOTE | 2018-06-01 08:02 | OB.TRI.PN ---
Progress Notes Date of Service: 05/31/18 Progress Note: 28yo @ 37 wga presenting for second dose of betamethasone for recent advanced cervical dilation and false labor. Betamethasone given and patient discharged to home.
== END 2018-05-31 13:35 | disposition home or self-care (01) ==
LOC: WPOUT 12:55 → WP 12:56
PROVIDERS: Referring Provider Obstetrics & Gynecology; Visit Provider Obstetrics & Gynecology
DX: O47.03 False labor before 37 completed weeks of gestation, third trimester (principal); Z3A.37 37 weeks gestation of pregnancy
CPT/HCPCS: 96372; 99218; G0378; J0702

== ENCOUNTER 2018-06-12 02:52 | Inpatient (IN) | payer MEDICAID, SELFPAY ==
[2018-06-12] MEDS: Lactated Ringers 1,000 ML 50 ML IV ×2 (03:10→06:33)
[2018-06-12 03:11] VITALS: BMI 34.9
[2018-06-12 03:22] LABS: Hematocrit 36.1 % (37-47); Hemoglobin 11.4 g/dl (12.0-15.0); Mean Corp Hgb Conc 31.6 g/gl (32-36); Mean Corpuscular Hgb 28.3 pg (27.0-32.0); Mean Corpuscular Volume 89.6 fL (81-99); Mean Platelet Vol. 10.6 fl (6.2-12.0); Platelet Count 229 K/mm3 (150-450); RBC Distribution Width CV 13.5 % (11.6-14.6); RBC Distribution Width SD 43.8 fl (35.1-43.9); Red Blood Count 4.03 M/mm3 (4.2-5.4); White Blood Count 15.7 K/mm3 (4.4-11.0)
[2018-06-12 03:28] LABS: ROM Internal Control Test YES-OK TO RESULT pt. (Internal QC); ROM Patient Test Negative (Negative); Record Kit Lot#, ROM+ J7836
[2018-06-12 03:29] LABS: Scan Indicated on CBC? Y/N NO
[2018-06-12 10:52] LABS: Amphetamine Urine VISTA NEGATIVE (<1000 ng/mL); Barbiturate Urine VISTA NEGATIVE (< 200 ng/mL); Benzodiazepine Urine VISTA NEGATIVE (< 200 ng/mL); Cocaine Urine VISTA NEGATIVE (< 300 ng/mL); Ecstacy Urine VISTA NEGATIVE (< 500 ng/mL); Methadone Urine VISTA NEGATIVE (< 300 ng/mL); PCP Urine VISTA NEGATIVE (< 25 ng/mL); THC Urine VISTA NEGATIVE (< 50 ng/mL); Vista UDS pH Range 6
[2018-06-12] MEDS: 0.9% Saline Lock 10 ML Syringe IV (11:36)
[2018-06-12] MEDS: Oxytocin 30 units/NS 500 ml 30 UNITS/500 ML IV.SOLN IV (11:37)
[2018-06-12] MEDS: Oxytocin 30 units/NS 500 ml 30 UNITS/500 ML IV.SOLN 334 UNITS IV (12:32)
--- NOTE | 2018-06-12 12:44 | PCM.OB.VAG ---
Vaginal Delivery Maternal Presentation: Active Labor Presented at 38w5d ega with contractions Amniotic Membrane Rupture Type: Artificial Rupture of Membrane time: 0800 Amniotic Fluid Description: Clear Final SAPPHIRE: 06/21/18 Final SAPPHIRE Source: US <20 weeks Gestational age: 38 Weeks and 5 Days Date of Procedure: 06/12/18 Pre-Operative Diagnosis: Labor Post-Operative Diagnosis: same Surgery/ Procedure Performed: Spontaneous Vaginal Delivery Type of Anesthesia: None Description of Procedure: Progressed rapidly from 8 cm to FD then precipitously delivered a live female . Nursing staff delivered baby with loose cord around the neck. The cord was clamped and cut and baby placed on mom's chest for skin to skin time. I delivered the placenta spontaneously intact with a centrally located 3VC. The uterus contracted well. The cervix, vagina, and perineum were intact. Presentation: Vertex Placental Delivery Description: Spontaneous Placenta Disposition: [facility] Percentage of Placenta Abruption: 0 Cord Vessel Description: 3 Vessels Nuchal Cord Compression: Without compression Cord Entanglement: Around neck x 1, loose Estimated Blood Loss: 300cc A gender: Female (1 minute): 8 (5 minute): 9 Episiotomy Description: None Laceration: None Medications given after delivery: IV Pitocin Complications: None
--- NOTE | 2018-06-12 12:53 | DCINST_ITS ---
Discharge Diet: No Restrictions Discharge Activity: Return to Normal Activity, May Drive, May Shower Return to work on:: 08/01/18 May shower in (days): 0 May resume sexual activity in: 4-6 weeks Call your doctor if your incision/area has: Sudden Increased Bleeding, Increased Pain/ Swelling, Foul Smelling Discharge Call your doctor if you observe: Fever of 101 or Higher, Inability to urinate, Inability to have a bowel movement, Using more than one pad per hour, Shortness of breath, Chest pain, Calf discomfort, Uncontrolled pain Cleanse incision/area with: Soap & Water Additional Instructions: If you experience any of the following, contact your healthcare provider. * Bleeding that soaks a pad every hour for 2 hours * Fever 100.4 or higher * Unrelieved incision or abdominal pain * Swelling, redness, discharge or bleeding from your incision or episiotomy site * Your incision begins to separate * Problems urinating (including inability to urinate or burning while urinating). * Visual changes * Severe headache * Flu-like symptoms * Pain or redness in one of both of your breasts * Pain, warmth, tenderness or swelling in your legs, especially the calf area * Frequent nausea and vomiting * Symptoms of depression or anxiety If you experience any of the following, call 911 or go to the nearest Emergency Room. * Chest pain * Problems breathing * Seizure activity * Partial or complete paralysis of a body part, slurred speech, weakness or drooping of the face, or a sudden inability to walk or hold your balance Allergies/Adverse Reactions: Allergies cyclobenzaprine [From Flexeril] Adverse Reaction (Mild, Verified 06/12/18 03:12) Vomiting Medications to take at Discharge Ibuprofen [Motrin] 600 mg PO Q6H PRN PRN #30 tab 06/12/18 The following prescriptions were given: Ibuprofen [Motrin] 600 mg PO Q6H PRN PRN #30 tab PRN Reason: pain or cramping Please Follow Up With: Alannah Zaldivar MD When: 6 weeks Primary Care Physician: Care Physician,No Primary [Primary Care Provider] - Test Results: Test results from this visit will be discussed in further detail at your follow- up appointment, if applicable. Proposed Discharge Date: 06/14/18
[2018-06-12] MEDS: Oxytocin 30 units/NS 500 ml 30 UNITS/500 ML IV.SOLN 167 UNITS IV (13:02)
[2018-06-12 16:30] VITALS: BP 105/57; PULSE 99; RESP 16; TEMP 36.6
[2018-06-12 19:45] VITALS: BP 104/62; PULSE 80; RESP 17; TEMP 36.5
[2018-06-12 23:30] VITALS: BP 107/54; PULSE 84; RESP 17; TEMP 36.2
[2018-06-13 04:20] VITALS: BP 103/55; PULSE 79; RESP 17; TEMP 36.3
[2018-06-13 06:59] LABS: Hematocrit 34.6 % (37-47); Hemoglobin 10.8 g/dl (12.0-15.0); Mean Corp Hgb Conc 31.2 g/gl (32-36); Mean Corpuscular Hgb 28.8 pg (27.0-32.0); Mean Corpuscular Volume 92.3 fL (81-99); Platelet Count 215 K/mm3 (150-450); RBC Distribution Width CV 13.6 % (11.6-14.6); RBC Distribution Width SD 43.8 fl (35.1-43.9); Red Blood Count 3.75 M/mm3 (4.2-5.4); White Blood Count 13.6 K/mm3 (4.4-11.0)
[2018-06-13 07:02] LABS: Scan Indicated on CBC? Y/N NO
--- NOTE | 2018-06-13 07:27 | PCM.PN.OB ---
Subjective: No specific complaints. Breast feeding. Objective: Afeb VSS Hgb stable PP day#1. - Physical Exam General: Alert, Oriented x3, Cooperative, No apparent distress Abdomen: Soft, Non Tender, Non-Distended Extremities: No edema Skin: No rashes Neurological: Neuro grossly intact Psych/Mental Status: Normal Affect Comment: Lochia appropriate Vital Signs Temp Pulse Resp BP 97.3 F L 79 17 103/55 L 06/13/18 04:20 06/13/18 04:20 06/13/18 04:20 06/13/18 04:20 Oxygen Delivery Method Room Air Weight: 203 lb 14.841 oz Body Mass Index (BMI) 34.9 Intake and Output for Last 24 Hours 06/11/18 06/12/18 06/13/18 23:59 23:59 23:59 Intake Total 1025 / 1025 Output Total 1100 / 1100 Balance -75 / -75 Laboratory Tests Past 24 Hrs 06/12/18 06/13/18 09:40 06:50 WBC 13.6 H RBC 3.75 L Hgb 10.8 L Hct 34.6 L MCV 92.3 MCH 28.8 MCHC 31.2 L RDW 13.6 RDW Differential 43.8 Plt Count 215 MPV 11.0 Urine Opiates Screen NEGATIVE Urine Methadone Screen NEGATIVE Ur Barbiturates Screen NEGATIVE Ur Phencyclidine Scrn NEGATIVE Ur Amphetamines Screen NEGATIVE U Methamphetamin-MDMA NEGATIVE U Benzodiazepines Scrn NEGATIVE Urine Cocaine Screen NEGATIVE U Cannabinoids Screen NEGATIVE Ur Drug Screen Comment Medical Necessity - Tobacco Use Smoking Status: Current every day smoker Assessment/Plan All Active Problems with 36 to 37 weeks completed gestation (Acute) False labor before 37 completed weeks of gestation (Acute) Doing well on PP day#1. Continue routine PP care.
[2018-06-13 08:11] VITALS: BP 95/55; PULSE 87; RESP 18; TEMP 36.4
[2018-06-13 09:36] VITALS: PULSE 87; RESP 18
[2018-06-13 11:20] VITALS: BP 108/55; PULSE 87; RESP 18; TEMP 36.6
[2018-06-13] MEDS: Dibucaine 30 GM Tube 1 APPLIC TOPICAL (12:26)
--- NOTE | 2018-06-13 12:38 | PCM.PN.OB ---
Patient Problems: Active and Suspected Problems (spontaneous vaginal delivery) (Acute) Subjective: No issues overnight. Denies heavy lochia. Feels well and desires discharge home. Infant nursing well. Objective: avss - Physical Exam General: Alert, No apparent distress HEENT: Atraumatic, Normocephalic Lungs: Normal air movement Cardiovascular: Regular rate, Regular Rhythm, Normal S1, Normal S2, No murmurs Abdomen: Soft, Non Tender, Non-Distended, - - fundus firm and nontender Extremities: No edema, No Calf Tenderness Psych/Mental Status: Alert and oriented to time, place, person, mood and affect Vital Signs Temp Pulse Resp BP 97.9 F 87 18 108/55 L 06/13/18 11:20 06/13/18 11:20 06/13/18 11:20 06/13/18 11:20 Oxygen Delivery Method Room Air Weight: 92.5 kg Body Mass Index (BMI) 34.9 Intake and Output for Last 24 Hours 06/11/18 06/12/18 06/13/18 23:59 23:59 23:59 Intake Total 1025 / 1025 Output Total 1100 / 1100 Balance -75 / -75 Laboratory Tests Past 24 Hrs 06/13/18 06:50 WBC 13.6 H RBC 3.75 L Hgb 10.8 L Hct 34.6 L MCV 92.3 MCH 28.8 MCHC 31.2 L RDW 13.6 RDW Differential 43.8 Plt Count 215 MPV 11.0 Medical Necessity - Tobacco Use Smoking Status: Current every day smoker Assessment/Plan All Active Problems (spontaneous vaginal delivery) (Acute) 28yo P3 PPD#1 s/p doing well. -Rh positive - -Discussed PPBC - interval sterilization planned -d/c home today
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
--- NOTE | 2018-06-13 13:18 | NURSING ---
this nurse reviewed the charting completed by the student nurse, Anahi Fritz and it is correct.
--- NOTE | 2018-06-21 17:39 | NURSING ---
Mother doing well on follow up phone call. States baby eating well but she has cut the dairy in her diet. States the nurses were all great and riccardo were great baby catchers.
--- NOTE | 2018-07-07 16:13 | CASEMGMT ---
Addendum entered and electronically signed by Analilia Mckeon 08/11/18 16:22: Reviewed and approve BUSINESS BANKING MANAGER student documentation below. -CHLOE ORONA-Abraham, RAW STOCK DYEING MACHINE TENDER Original Note: Social Work Labor and Delivery Baby's meconium returned positive. Report made to [facility] at [phone] and spoke with Jennifer. No other services indicated or requested at this time. -Sherie Villanueva, BUSINESS BANKING MANAGER Student Regulatory Lead.
== END 2018-06-13 14:40 | disposition home or self-care (01) | DRG 560 ==
LOC: WPOUT 02:53
PROVIDERS: Admitting Provider Obstetrics & Gynecology; Referring Provider Obstetrics & Gynecology; Visit Provider Obstetrics & Gynecology
DX: O69.81X0 Labor and delivery complicated by cord around neck, without compression, not applicable or unspecified (principal); Z3A.38 38 weeks gestation of pregnancy; Z37.0 Single live birth; O99.334 Smoking (tobacco) complicating childbirth
CPT/HCPCS: 59025; 59050; 80307; 84112; 85027; 86850; 86900; 99218; J7120; A4216; G0378

== ENCOUNTER → 2018-08-01 | Outpatient (CLI) | payer MEDICAID, SELFPAY | END | disposition home or self-care (01) | LOC: LABSPEC 13:05 | PROVIDERS: Visit Provider Obstetrics & Gynecology | DX: R30.0 Dysuria (principal) | CPT/HCPCS: 87077; 87086; 87088; 87186 ==

== ENCOUNTER 2018-09-07 08:08 | Day surgery (SDC) | payer MEDICAID, SELFPAY ==
[2018-09-01 17:05] LABS: Hematocrit 37.6 % (37-47); Mean Corp Hgb Conc 31.9 g/gl (32-36); Mean Corpuscular Hgb 28.8 pg (27.0-32.0); Mean Corpuscular Volume 90.2 fL (81-99); Mean Platelet Vol. 10.6 fl (6.2-12.0); Platelet Count 224 K/mm3 (150-450); RBC Distribution Width CV 14.7 % (11.6-14.6); RBC Distribution Width SD 48.8 fl (35.1-43.9); Red Blood Count 4.17 M/mm3 (4.2-5.4); White Blood Count 9.9 K/mm3 (4.4-11.0)
[2018-09-01 17:06] LABS: Scan Indicated on CBC? Y/N NO
[2018-09-01 17:09] LABS: International Normalized Ratio 1.1; Prothrombin Time (Protime)PT. 13.7 SECONDS (11.7-14.9)
[2018-09-01 17:10] LABS: Partial Thromboplast Time 28.1 Seconds (24.1-36.2)
[2018-09-01 17:32] LABS: Internal QC Validated? YES +Cl - CLEAR BKGD; Pregnancy, Serum, hCG Quali. NEGATIVE Negative
[2018-09-07 08:29] VITALS: BP 103/69; PULSE 77; RESP 16; TEMP 36.4; O2SAT 100; BMI 34.0
[2018-09-07 08:29] LABS: Internal QC Validated? YES +Cl - CLEAR BKGD; Pregnancy, Urine Negative Negative
--- NOTE | 2018-09-07 09:53 | DCINST_ITS ---
You will use the following diet at home:: No restrictions Your food should be the consistency of: Regular Discharge Activity: Return to Normal Activity, May Drive, May not drive while taking narcotic pain medications., May Shower Return to work on:: 09/12/18 May shower in (days): 0 May resume sexual activity in: 2 weeks Call your doctor if your incision/area has: Sudden Increased Bleeding, Increased Pain/ Swelling, Increased Redness, Foul Smelling Discharge, Swelling at the incision site Call your doctor if you observe: Fever of 101 or Higher, Inability to urinate, Inability to have a bowel movement, Using more than one pad per hour, Shortness of breath, Chest pain, Calf discomfort, Uncontrolled pain Remove Dressing in (days):: 2 Cleanse incision/area with: Soap & Water Allergies/Adverse Reactions: Allergies cyclobenzaprine [From Flexeril] Adverse Reaction (Mild, Verified 08/31/18 14:20) Vomiting Medications to take at Discharge Ibuprofen 600 mg PO 4X/DAY #30 tab 09/07/18 Oxycodone [Oxyir] 5 mg PO Q4H PRN PRN 7 Days #20 tab 09/07/18 The following prescriptions were given: Oxycodone [Oxyir] 5 mg PO Q4H PRN PRN 7 Days #20 tab PRN Reason: Severe Pain (6-10/10) Ibuprofen 600 mg PO 4X/DAY #30 tab Primary Care Physician: Care Physician,No Primary [Primary Care Provider] - Test Results: Test results from this visit will be discussed in further detail at your follow- up appointment, if applicable. Please Follow Up With: Bandar Moore MD When: one week Proposed Discharge Date: 09/07/18
--- NOTE | 2018-09-07 10:00 | FALS_PTH ---
PATIENT: ISRAEL PAYNE [place]: [facility] U#:[id number] AGE/SX: 28/F ROOM: RE09/07/[address]: Dr. Bandar [place] MD : 1990 BED: DIS: 09/07/2018 SPEC #: [id number] RECD: 09/07/18 11:32 STATUS: VITOR CHEVY #: [id number] DIAMANTE: 09/07/18 10:[address]: Bandar Moore DEPT: SURGICAL PATHOLOGY RECD BY: Delbert Olguin ENTERED: 09/07/18 14:08 SP TYPE: FALL TUBES OTHR DR: No Primary Care Phys Tissues: Fallopian tube Procedures: Surgery Specimen Level II HEADER OPERATION: Laparoscopic salpingectomy PRE-OP DIAGNOSIS: Requests sterilization TISSUE SUBMITTED: Bilateral fallopian tubes MICROSCOPIC DIAGNOSIS Right and left fallopian tubes, bilateral salpingectomies: Two complete segments of fallopian tubes with no pathologic change. AM:sarina 09/08/18 MICROSCOPIC DESCRIPTION Slides are reviewed. GROSS DESCRIPTION Received is one container labeled with the patient's name and designated bilateral fallopian tubes. The specimen consists of bilateral fallopian tubes including fimbrial ends measuring 7.5 cm in length and 0.5 cm in diameter and 4 cm in length and 0.5 cm in diameter. Sections do not reveal any mass lesion. The fallopian tubes are not identified as right or left. Sections reveal unremarkable cut surfaces. Also present in the container are a few detached pieces of soft tissue consisting of portion of fallopian tube including fimbrial end measuring 2 x 0.8 x 0.4 cm. These pieces are inked black. Battery Container Tester Aluminum sections are submitted in two cassettes as follows: 1 - one fallopian tube, 2 - second fallopian tube including detached pieces of tissue. / SJ:sarina 09/07/18 TC:4 CPT: 11598 x2
--- NOTE | 2018-09-07 10:20 | PCM.OPRPT ---
Report of Operation Date of Procedure: 09/07/18 Pre-Operative Diagnosis: Requests Permanent Sterilization Post-Operative Diagnosis: Same Surgery/Procedure Performed:: Laparoscopic Bilateral Salpingectomy Description of Surgical Findings:: Normal appearing uterus, ovaries, and fallopian tubes. Liver appeared to have fatty changes. Normal gallbladder and stomach. manufacturing engineering director: Nicanor Wang Type of Anesthesia:: General Anesthesiologist: Rocco Beatty Special Medications: none Specimen's removed: Right and left fallopian tubes Drains: none Estimated Blood Loss (mL): minimal Fluids Replaced: 600cc LR Description of Procedure: Rose was taken to the OR with IV running. She reconfirmed desire for permanent sterilization prior to the procedure. She was given two grams of Cefotetan for surgical prophylaxis prior to the case. General anesthesia was induced without complication. She was then prepped and draped in the dorsal lithotomy position. The bladder was drained. A [place] type uterine manipulator was placed. Attention was then directed to the abdomen where a 5mm vertical incision was made in the lower base of the umbilicus. The underlying subcutaneous tissue was then bluntly dissected down to the level of the fascia. The abdominal wall was then elevated and a Veress needle was placed though the umbilical incision into the abdominal cavity. The abdomen was then inflated to 15 Torr pressure with CO2 gas. The Veress needle was removed and replaced with a 5mm laparoscopic trocar and sleeve. The trocar was removed and the laparoscope was placed. Findings were as mentioned above. Two 5mm lateral laproscopic ports were then placed one on the left and one on the right about 4 cm below the level of the umbilicus lateral to the inferior epigastric vessels. The left fallopian tube was then grasped at the fimbriated end elevated and using the Ligasure device the mesosalpinx was dissected from the fimbriated end to the cornua of the uterus. The tube was then amputated at the cornua and removed through the right laparoscopic port. In a similar fashion the right tube was removed. Hemostasis was excellent. The laparoscopic ports were then removed and the gas evacuated from the abdomen. The uterine manipulator was removed. The skin incisions were closed with 4-0 Monocryl suture and injected with 0.25% Marcaine. She was reversed from anesthesia and taken to the recovery room in stable condition. Sponge, needle and instrument counts were correct. Grafts/Implants Used: none - Complications none - Admit VTE Documentation VTE Present on Admission: No VTE Mechan Device Prophylaxis: SCD's VTE Pharm Prophylaxis ordered?: No
[2018-09-07] MEDS: Bupivacaine 0.25% 30 ML Vial (10:21)
[2018-09-07 10:32] VITALS: BP 103/69; BP 116/82; PULSE 70; RESP 16; TEMP 36.3; O2SAT 100
--- NOTE | 2018-09-07 10:32 | OP.PCM_ITS ---
Report of Operation Date of Procedure: 09/07/18 Pre-Operative Diagnosis: Requests Permanent Sterilization Post-Operative Diagnosis: Same Surgery/Procedure Performed:: Laparoscopic Bilateral Salpingectomy Description of Surgical Findings:: Normal appearing uterus, ovaries, and fallopian tubes. Liver appeared to have fatty changes. Normal gallbladder and stomach. dimpling machine operator: Nicanor Wang Type of Anesthesia:: General Anesthesiologist: Rocco Beatty Special Medications: none Specimen's removed: Right and left fallopian tubes Drains: none Estimated Blood Loss (mL): minimal Fluids Replaced: 600cc LR Description of Procedure: Rose was taken to the OR with IV running. She reconfirmed desire for permanent sterilization prior to the procedure. She was given two grams of Cefotetan for surgical prophylaxis prior to the case. General anesthesia was induced without complication. She was then prepped and draped in the dorsal lithotomy position. The bladder was drained. A [place] type uterine manipulator was placed. Attention was then directed to the abdomen where a 5mm vertical incision was made in the lower base of the umbilicus. The underlying subcutaneous tissue was then bluntly dissected down to the level of the fascia. The abdominal wall was then elevated and a Veress needle was placed though the umbilical incision into the abdominal cavity. The abdomen was then inflated to 15 Torr pressure with CO2 gas. The Veress needle was removed and replaced with a 5mm laparoscopic trocar and sleeve. The trocar was removed and the laparoscope was placed. Findings were as mentioned above. Two 5mm lateral laproscopic ports were then placed one on the left and one on the right about 4 cm below the level of the umbilicus lateral to the inferior epigastric vessels. The left fallopian tube was then grasped at the fimbriated end elevated and using the Ligasure device the mesosalpinx was dissected from the fimbriated end to the cornua of the uterus. The tube was then amputated at the cornua and removed through the right laparoscopic port. In a similar fashion the right tube was removed. Hemostasis was excellent. The laparoscopic ports were then removed and the gas evacuated from the abdomen. The uterine manipulator was removed. The skin incisions were closed with 4-0 Monocryl suture and injected with 0.25% Marcaine. She was reversed from anesthesia and taken to the recovery room in stable condition. Sponge, needle and instrument counts were correct. Grafts/Implants Used: none - Complications none - Admit VTE Documentation VTE Present on Admission: No VTE Mechan Device Prophylaxis: SCD's VTE Pharm Prophylaxis ordered?: No
[2018-09-07 10:45] VITALS: BP 103/69; BP 125/82; PULSE 71; RESP 16; TEMP 36.6; O2SAT 100
[2018-09-07 11:09] VITALS: BP 103/69
== END 2018-09-07 11:10 | disposition home or self-care (01) ==
LOC: SDC 08:10 → AC 08:11
PROVIDERS: Anesthesiology; Referring Provider Obstetrics & Gynecology; Visit Provider Obstetrics & Gynecology
PROC: (CPT 58661; principal; 2018-09-07 09:45)
DX: Z30.2 Encounter for sterilization (principal); F17.210 Nicotine dependence, cigarettes, uncomplicated
CPT/HCPCS: 00840; 58661; 36415; 81025; 84703; 85027; 85610; 85730; 86850; 86900; 88302; J7120; J2405

== ENCOUNTER 2020-01-06 21:21 | Emergency (ER) | payer OTHER, MEDICAID, SELFPAY ==
[2020-01-06 21:22] VITALS: BP 126/73; PULSE 98; RESP 20; TEMP 36.2; O2SAT 98; BMI 33.2
--- NOTE | 2020-01-06 22:12 | ED.VIS.GEN ---
History of Present Illness Chief Complaint: Shortness of Breath Informant: Patient Narrative: 29-year-old female with history of asthma is presenting for cough and nasal congestion for 3 days. She has no exposure to COVID?19 that she knows of. She states that her child who goes to school has a cough and cold. Otherwise the child is doing well. She denies fever, chills, myalgias, loss of taste or smell. She does not have shortness of breath. Her only complaint is cough and nasal congestion. She does have history of seasonal allergies and takes medication for this. She has history of asthma as well but states he has not been wheezing or short of breath. Denies chest pain. Past Medical History - Allergies and Home Meds Allergies/Adverse Reactions: Allergies cyclobenzaprine [From Flexeril] Adverse Reaction (Mild, Verified 08/31/18 14:20) Vomiting Primary Care Physician: Care Physician,No Primary [Primary Care Provider] - Prior records reviewed: Yes Past Medical History: - - Asthma Surgical History: noncontributory Lives: Spouse/ Significant Other Smoking Status: Current every day smoker Alcohol: None Drugs: None Review of Systems General: Denies: Chills, Fever, Malaise Eyes: Denies: Visual changes - bilaterally, Diplopia ENT: Reports: - - No loss of taste or smell. Denies: Rhinorrhea, Sore throat Cardiovascular: Denies: Chest pain, Palpitations Respiratory: Reports: Cough. Denies: Sputum Gastrointestinal: Denies: Abdominal pain, Nausea, Vomiting Genitourinary: Denies: Dysuria, Hematuria Musculoskeletal: Denies: Myalgias, Arthralgias Skin: Denies: Rash, Abscess Neurological: Denies: Headache, Weakness Physical Exam Vital Signs/Narrative: Vital Signs Temp Pulse Resp BP Pulse Ox 01/06/20 21:22 97.1 F L 98 20 H 126/73 H 98 Inital Vital Signs reviewed: Yes General: Well nourished, No Acute Distress Head: Normocephalic, Atraumatic Eyes: Perrl, EOMI ENT: Nasal congestion, - - Rhinorrhea Cardiovascular: Regular rate, Regular rhythm Respiratory: No distress, CTA bilaterally Abdomen: Soft, Nontender Skin: Normal color, No rash Neurological: Alert, Normal Sensation Psychological: Normal affect, Normal Mood Diagnostic/Tx/Re-eval - Medical Decision Making Patient has symptoms of URI. She does not have any red flag signs or symptoms consistent with COVID?19 and her symptoms are mild. She also has seasonal allergies. Patient will be given a prescription for Flonase in addition to her other allergy medication. She is also given a prescription for Sudafed. Patient will be tested for COVID?19 and she will quarantine at home. She is given strict return precautions. Patient stable for discharge at this time. Impression: 1. Upper respiratory infection likely viral ED Disposition - Plan for ED Patient: Disposition: Home or Assisted Living Instructions: ED Upper Resp Infec No Abx Tx Referrals: Care Physician,No Primary [Primary Care Provider] -
[2020-01-06] MEDS: Benzonatate 100 MG Capsule 200 MG PO (22:17)
[2020-01-06 22:51] VITALS: BP 128/72; PULSE 86; RESP 16; TEMP 36.6; O2SAT 98
== END 2020-01-06 22:53 | disposition home or self-care (01) ==
PROVIDERS: Emergency Provider Student in an Organized Health Care Education/Training Program
DX: J06.9 Acute upper respiratory infection, unspecified (principal); J45.909 Unspecified asthma, uncomplicated; F17.200 Nicotine dependence, unspecified, uncomplicated
CPT/HCPCS: 87635; 99283; U0003

== ENCOUNTER → 2020-01-23 | Outpatient (CLI) | payer MEDICAID, SELFPAY ==
[2020-01-06 21:22] VITALS: BMI 33.2
[2020-01-25 20:07] LABS: Chlamydia By Nucleic Acid AMP Negative (Negative)
[2020-01-26 05:50] LABS: Gonococcus By Nucleic Acid AMP Negative (Negative)
[2020-01-26 20:19] LABS: HPV Reflexed? NOT INDICATED
== END | disposition home or self-care (01) ==
LOC: LABSPEC 10:35
PROVIDERS: Visit Provider Obstetrics & Gynecology
DX: Z12.4 Encounter for screening for malignant neoplasm of cervix (principal); Z11.3 Encounter for screening for infections with a predominantly sexual mode of transmission
CPT/HCPCS: 87491; 87591; 88175; G0145

== ENCOUNTER → 2020-02-13 | Outpatient (CLI) | payer MEDICAID, SELFPAY ==
--- NOTE | 2020-02-13 | IMM_PTH ---
PATIENT: ISRAEL PAYNE LOC: [facility] U#:[id number] AGE/SX: 29/F ROOM: RE02/13/[address]: Dr. Alannah Cox MD : 1990 BED: DIS: 02/13/2020 SPEC #: [id number] RECD: 02/15/20 13:03 STATUS: VITOR REQ #: [id number] DIAMANTE: 02/13/20 00:[address]: Alannah Power DEPT: IMMUNOHISTOCHEMISTRY RECD BY: Yovana Vega ENTERED: 02/15/20 13:03 SP TYPE: IMMUNO OTHR DR: No Primary Care Phys Tissues: B - Uterine cervix, NOS C - Uterine cervix, NOS D - Uterine cervix, NOS Procedures: p16 (initial) KI-67 (add) PHYSICIAN & INSTITUTION [place] [id number] SPECIMEN INFORMATION: Tissue Source: B - Cervix at 3 o'clock, C - Cervix at 9 o'clock, D - Cervix at 12 o'clock Clinical Info: HGSIL Specimen Number: [id number] B-D CPT code: 25983 x3, 62943 x3 METHODOLOGY: Deparaffinized sections of prefer/formalin-fixed tissue or PAP/DQ stained slides are incubated with monoclonal/polyclonal antibodies/oligonucleotide probes. Localization is made via biotin free immunoperoxidase method. Appropriate controls are performed and reacted as expected. Results on target cell population are indicated in the following table: RESULTS: ANTIBODY / CLONE RESULT Block B P16 (E6H4) positive, focal block-like Ki-67 (30-9) positive, moderate Block C P16 (E6H4) positive, focal block-like Ki-67 (30-9) positive, moderate Block D P16 (E6H4) positive, focal block-like Ki-67 (30-9) positive, high These tests were developed and their performance characteristics determined by [facility]. They may not have been cleared or approved by the U.S. Food and Drug Administration. The FDA has determined that such clearance or approval is not necessary. The above immunohistochemical/dualISH markers are ordered and reviewed by the Pathologist. INTERPRETATION: B. Cervix at 3 o'clock, biopsy: Moderate squamous dysplasia, ROSSANA II (HSIL). C. Cervix at 9 o'clock, biopsy: Moderate squamous dysplasia, ROSSANA II (HSIL). D. Cervix at 12 o'clock, biopsy: Moderate squamous dysplasia, ROSSANA II (HSIL). AM:sarina 02/16/20
--- NOTE | 2020-02-13 | CER_PTH ---
PATIENT: ISRAEL PAYNE [facility]: [facility] U#:[id number] AGE/SX: 29/F ROOM: RE02/13/[address]: Dr. Alannah Cox MD : 1990 BED: DIS: 02/13/2020 SPEC #: [id number] RECD: 02/13/20 15:47 STATUS: VITOR CHEVY #: [id number] DIAMANTE: 02/13/20 00:[address]: Alannah Power DEPT: SURGICAL PATHOLOGY RECD BY: Josiane Ho ENTERED: 02/14/20 08:54 SP TYPE: CERV OTHR DR: No Primary Care Phys Tissues: A - Endocervical B - Uterine cervix, NOS C - Uterine cervix, NOS D - Uterine cervix, NOS Procedures: Surgery Specimen Level IV HEADER OPERATION: Colposcopy, ECC PRE-OP DIAGNOSIS: HGSIL TISSUE SUBMITTED: A - ECC, B - Biopsy cervix 3 o'clock, C - Biopsy cervix 9 o'clock, D - Biopsy cervix 12 o'clock MICROSCOPIC DIAGNOSIS A. Endocervix, curettings: Rare strips of benign superficial endocervix. Fragments of proliferative endometrium. B. Cervix at 3 o'clock, biopsy: Detached fragment of squamous mucosa with moderate dysplasia, ROSSANA II (HSIL). See comment. C. Cervix at 9 o'clock, biopsy: Fragments of detached squamous mucosa with mild to moderate squamous dysplasia, ROSSANA I-II (HSIL). See comment. D. Cervix at 12 o'clock, biopsy: Detached fragments of squamous mucosa with at least moderate squamous dysplasia, ROSSANA?II (HSIL). See comment. AM:sarina 02/15/20 COMMENT B-D. Results from immunohistochemistry ([id number]) for surrogate HPV marker (p16) will be reported separately. The fragments are small and detached. A severe squamous dysplastic process cannot be excluded. Clinical correlation is necessary. MICROSCOPIC DESCRIPTION Slides are reviewed. GROSS DESCRIPTION A - Received in fixative is one container labeled with the patient's name and designated ECC. The specimen consists of multiple irregular fragments of alas soft tissue that in aggregate measure 2 x 1.5 x <0.1 cm. The specimen is totally submitted in one cassette. B - Received in fixative is one container labeled with the patient's name and designated 3 o'clock. The specimen consists of multiple irregular fragments of light alas soft tissue that in aggregate measure 0.2 x 0.1 x <0.1 cm. The specimen is totally submitted in one cassette. C - Received in fixative is one container labeled with the patient's name and designated 9 o'clock. The specimen consists of multiple irregular fragments of light alas soft tissue that in aggregate measure 1 x 0.2 x <0.1 cm. The specimen is totally submitted in one cassette. D - Received in fixative is one container labeled with the patient's name and designated 12 o'clock. The specimen consists of multiple irregular fragments of light alas soft tissue that in aggregate measure 0.2 x 0.2 x <0.1 cm. The specimen is totally submitted in one cassette. / AM:sarina 02/14/20 TC:3 CPT: 02293 x4
== END | disposition home or self-care (01) ==
LOC: LABSPEC 14:30
PROVIDERS: Visit Provider Obstetrics & Gynecology
DX: R87.613 High grade squamous intraepithelial lesion on cytologic smear of cervix (HGSIL) (principal)
CPT/HCPCS: 88305; 88341; 88342

== ENCOUNTER 2020-03-14 15:58 | Day surgery (SDC) | payer MEDICAID, SELFPAY ==
[2020-03-05 12:30] LABS: Hematocrit 43.3 % (37-47); Hemoglobin 13.8 g/dL (12.0-15.0); Mean Corp Hgb Conc 31.9 g/dL (32-36); Mean Corpuscular Hgb 29.4 pg (27.0-32.0); Mean Corpuscular Volume 92.1 fL (81-99); Mean Platelet Vol. 10.4 fl (6.2-12.0); Platelet Count 224 K/mm3 (150-450); RBC Distribution Width CV 13.3 % (11.6-14.6); RBC Distribution Width SD 45.6 fl (35.1-43.9); White Blood Count 10.5 K/mm3 (4.4-11.0)
[2020-03-14] VITALS (7 sets, daily range): BP systolic 111–117; BP diastolic 71–86; PULSE 66–83; RESP 16; TEMP 36.3–36.5; O2SAT 98–100; BMI 34.0
--- NOTE | 2020-03-14 | IMM_PTH ---
PATIENT: ISRAEL PAYNE LOC: [facility] [place] U#:[id number] AGE/SX: 29/F ROOM: RE03/14/[address]: Dr. Alannah Cox MD : 1990 BED: DIS: 03/14/2020 SPEC #: [id number] RECD: 03/18/20 12:59 STATUS: SOUAshu REQ #: [id number] DIAMANTE: 03/14/20 00:[address]: Alannah Power DEPT: IMMUNOHISTOCHEMISTRY RECD BY: Yovana Vega ENTERED: 03/18/20 13:00 SP TYPE: IMMUNO OTHR DR: No Primary Care Phys Tissues: A - UTERINE CERVIX LEEP B - UTERINE CERVIX LEEP C - Uterine cervix, NOS Procedures: p16 (initial) KI-67 (add) PHYSICIAN & INSTITUTION [place] [id number] SPECIMEN INFORMATION: Tissue Source: A - Ectocervix 3 to 9 o'clock anterior, B - Ectocervix 3 to 9 o'clock posterior, C - Top hat Clinical Info: High-grade cervical dysplasia Specimen Number: [id number] A-C CPT code: 52732 x3, 62967 x3 METHODOLOGY: Deparaffinized sections of prefer/formalin-fixed tissue or PAP/DQ stained slides are incubated with monoclonal/polyclonal antibodies/oligonucleotide probes. Localization is made via biotin free immunoperoxidase method. Appropriate controls are performed and reacted as expected. Results on target cell population are indicated in the following table: RESULTS: ANTIBODY / CLONE RESULT Block A P16 (E6H4) positive, block staining Ki-67 (30-9) positive, high Block B P16 (E6H4) positive, block staining Ki-67 (30-9) positive, high Block C P16 (E6H4) positive, block staining Ki-67 (30-9) positive, moderate These tests were developed and their performance characteristics determined by [facility]. They may not have been cleared or approved by the U.S. Food and Drug Administration. The FDA has determined that such clearance or approval is not necessary. The above immunohistochemical/dualISH markers are ordered and reviewed by the Pathologist. INTERPRETATION: A. Ectocervix 3 to 9 o'clock, anterior, LEEP conization: Moderate to severe squamous dysplasia. B. Ectocervix 3 to 9 o'clock, posterior, LEEP conization: Severe squamous dysplasia. C. Top hat, LEEP conization: Focal moderate to severe squamous dysplasia. SJ:sarina 03/19/20
--- NOTE | 2020-03-14 07:59 | HP.PCM_ITS ---
- Problem List (1) ROSSANA II (cervical intraepithelial neoplasia II) Status: Acute History and Physical Date of Admission: 03/14/20 Surgical History and Physical Date: 03/14/2020 Name: ISRAEL BAI Age: 29 Date of : 1990 Israel Bai, a 29 year old female 2 1 0 0 2, presents for LEEP on March 14 at 9:00. -- hx HGSIL PAP with 02/13/20 colposcopy showing ROSSANA 1-2. Israel is scheduled for LEEP procedure. [facility] MEDICATIONS HISTORY: Patient is also takin. No Meds ALLERGIES: Flexeril, Hives and/or rash, Flexeril and Vomiting Infections - Chicken pox and shingles Illnesses - bulging lumbar disc, depression, preg induced constipation Accidents - no injuries of consequence Hospitalizations - Childbirth Review of Systems: GENERAL - Denies fever, or chills SKIN - Denies skin changes EYES - Denies visual changes EARS - Denies difficulty hearing NOSE - Denies nasal congestion or bleeding MOUTH - Denies sore throat or difficulty swallowing NECK - Denies pain or swelling RESPIRATORY - Denies shortness of breath or wheezing CARDIOVASCULAR - Denies palpitations or chest pain GASTROINTESTINAL - Denies nausea, vomiting, diarrhea, constipation GENITOURINARY - Denies dysuria, frequency of urination, incontinence of urine MUSCULOSKELETAL - Denies joint or muscle pain NEUROLOGICAL - Denies localized numbness or weakness PSYCHIATRIC - Denies depression or anxiety ENDOCRINE - Denies heat or cold intolerance, weight loss or gain HEMATO-IMMUNOLOGIC - Denies excesive bleeding with cuts SOCIAL HISTORY: Alcohol Use - RARELY not while Smoking - Advised to quit and smoker x 10 y off and on. Trying to quit. Currently 1PPD. Now 6 cigs qday. Diet - moderate, balanced diet Lifestyle - engaged Exercise - regular, walking and walks 20 miles day. 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 Illicit Drug Use - denies use of street drugs Sexual Activity - ACTIVE ONE PARTNER and Residence - lives with [facility] Place of - [place] Spouse-Sig Other Name - Gelacio Veda- fiance Spouse-Sig Other Occupation - truck assembler Children Name(s) - Jericho Bueno (EB), Shannen (edward) Control - Prior Tubal FAMILY HISTORY: MENSTRUAL HISTORY: LMP Known?- DefiniteAmount/Duration - 6 days, Regularity - regular, Frequency - monthly days, LMP - 02/06/20, Age Onset Menarche - 11 PAST PREGNANCIES: Total Pregnancies - 4; Full Term Pregnancies - 2; Premature - 1; Abortions, Induced - 0; Abortions, Spontaneous - 0; Ectopics - 0; Multiple Births - 0; Living Children - 2 SURGICAL HISTORY: 1. 09/07/2018 Lap bilateral salpingectomy ; Dr Bandar Moore - sterilization 2. T and A ; - 3. D and C, 2014 ; - PHYSICAL EXAM BP- 124/70 Sitting, Right arm, regular cuff Weight- 199.82231 lbs Height- 64 inch BMI:34.23 CONSTITUTIONAL - NAD, well nourished, and well developed SKIN - No rash, lesions, or ulcers HEENT - normocephalic, atraumatic, sclerae anicteric LUNGS - normal respiratory rate and rhythm NEUROLOGICAL - normal gait, normal balance, normal motor PSYCHIATRIC - A and O to time, place, person, mood and affect Laboratory Tests 03/05/20 03/05/20 03/05/20 Range/Units 11:59 11:59 11:59 WBC 10.5 (4.4-11.0) K/mm3 RBC 4.70 (4.2-5.4) M/mm3 Hgb 13.8 (12.0-15.0) g/dL Hct 43.3 (37-47) % MCV 92.1 (81-99) fL MCH 29.4 (27.0-32.0) pg MCHC 31.9 L (32-36) g/dL RDW Std Deviation 45.6 H (35.1-43.9) fl RDW Coeff of Karon 13.3 (11.6-14.6) % Plt Count 224 (150-450) K/mm3 MPV 10.4 (6.2-12.0) fl PT 13.0 (11.7-14.9) SECONDS INR 1.0 Blood Type A POSITIVE Antibody Screen NEGATIVE ASSESSMENT/PLAN: 1. 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 Reviewed how procedure informed and anticipated recovery Consents signed and reviewed COVID19 screening test neg
--- NOTE | 2020-03-14 13:25 | CONE_PTH ---
PATIENT: ISRAEL PAYNE LOC: [facility] [place] U#:[id number] AGE/SX: 29/F ROOM: RE03/14/[address]: Dr. Alannah Cox MD : 1990 BED: DIS: 03/14/2020 SPEC #: [id number] RECD: 03/15/20 07:39 STATUS: VITOR CHEVY #: [id number] DIAMANTE: 03/14/20 13:[address]: Alannah Power DEPT: SURGICAL PATHOLOGY RECD BY: Josiane Ho ENTERED: 03/15/20 09:17 SP TYPE: Leep Cone SYDNEE DR: Polly Primary Care Phys Tissues: A - UTERINE CERVIX LEEP B - UTERINE CERVIX LEEP C - UTERINE CERVIX LEEP D - Endocervical Procedures: Surgery Specimen Level IV Surgery Specimen Level V HEADER OPERATION: LEEP cone PRE-OP DIAGNOSIS: High-grade cervical dysplasia TISSUE SUBMITTED: A - Ectocervix 3 to 9 o'clock anterior, B - Ectocervix 3 to 9 o'clock posterior, C - Top hat, D - Cervical curettings MICROSCOPIC DIAGNOSIS A. Ectocervix 3 to 9 o'clock, anterior, LEEP conization: Moderate to severe squamous dysplasia (HGSIL and ROSSANA II-III). Dysplastic changes also involve endocervical gland. Resection margins are focally positive for dysplastic changes. See comment. B. Ectocervix 3 to 9 o'clock, posterior, LEEP conization: Severe squamous dysplasia (HGSIL and ROSSANA III). Resection margin is focally positive for dysplastic changes. See comment. C. Top hat, LEEP conization: Focal moderate to severe squamous dysplasia (HGSIL and ROSSANA II-III). Resection margins are free of dysplastic changes. See comment. D. Endocervical curettings: Scant fragments of benign endocervical epithelium. Fragments of proliferative endometrium. Negative for dysplasia. See comment. SJ:sarina 03/18/20 COMMENT A-C. Immunohistochemistry ([id number]) for surrogate HPV marker (p16) supports the above diagnosis. D. The specimen predominantly consists of endometrial tissue. Please make reference to previous specimen ([id number]) cervix at 3 o'clock, biopsy with diagnosis of detached fragment of squamous mucosa with moderate dysplasia, cervix at 9 o'clock, biopsy with diagnosis of fragments of detached squamous mucosa with mild to moderate squamous dysplasia and cervix at 12 o'clock, biopsy with diagnosis of detached fragments of squamous mucosa with at least moderate squamous dysplasia. This case was reviewed and diagnosis discussed with Dr. Zaldivar on 04/10/20. MICROSCOPIC DESCRIPTION Slides are reviewed. GROSS DESCRIPTION A - Received in fixative is one container labeled with the patient's name and designated ectocervix 3 to 9 o'clock, anterior. The specimen consists of an irregular fragment of glistening, alas mucosa with attached soft tissue measuring 2.1 x 1 x 0.2 cm. The specimen is inked, serially sectioned and totally submitted in one cassette. B - Received in fixative is one container labeled with the patient's name and designated ectocervix 3 to 9 o'clock, posterior. The specimen consists of an irregular fragment of glistening, alas mucosa with attached soft tissue measuring 2.2 x 1 x 0.2 cm. The specimen is inked, serially sectioned and totally submitted in one cassette. C - Received in fixative is one container labeled with the patient's name and designated top hat. The specimen consists of two elongated fragments of alas tissue ranging in size from 1 to 2.5 cm. The specimen is inked and totally submitted in one cassette. D - Received in fixative is one container labeled with the patient's name and designated endocervical curettings. The specimen consists of multiple irregular fragments of alas tissue that in aggregate measure 1 x 0.3 x <0.1 cm. The specimen is totally submitted in one cassette. / AM:sarina 03/15/20 TC:5 CPT: 67093 x3, 51635
[2020-03-14] MEDS: Lactated Ringers 1,000 ML 100 ML IV (16:30)
[2020-03-14] MEDS: Lidocaine 1%/Epi 1:200 (30ml) 30 ML AMPUL (16:45)
[2020-03-14 17:28] LABS: Internal QC Validated? YES +Cl - CLEAR BKGD; Pregnancy, Serum, hCG Quali. NEGATIVE Negative
[2020-03-14] MEDS: Iodine/Potassium Iodide 14ML Bottle 1 DRP TOPICAL (17:52)
--- NOTE | 2020-03-14 18:11 | DCINST_ITS ---
Discharge Diet: No Restrictions Discharge Activity: Return to Normal Activity, May not drive while taking narcotic pain medications., May Shower, - - No tub bath for 2 weeks May resume sexual activity in: 4-6 weeks Lifting Restrictions: 20 lb Call your doctor if you observe: Fever of 101 or Higher, Inability to urinate, Inability to have a bowel movement, Using more than one pad per hour, Shortness of breath, Chest pain, Calf discomfort Allergies/Adverse Reactions: Allergies cyclobenzaprine [From Flexeril] Adverse Reaction (Mild, Verified 03/06/20 13:08) Vomiting Medications to take at Discharge NK 03/06/20 Primary Care Physician: Care Physician,No Primary [Primary Care Provider] - Test Results: Test results from this visit will be discussed in further detail at your follow- up appointment, if applicable. Please Follow Up With: Alannah Power MD When: 4 weeks
--- NOTE | 2020-03-14 18:18 | OP.PCM_ITS ---
Problem List (1) ROSSANA II (cervical intraepithelial neoplasia II) Status: Acute Report of Operation Date of Procedure: 03/14/20 Pre-Operative Diagnosis: 1. CINII Post-Operative Diagnosis: 1. CINII Surgery/Procedure Performed:: LEEP. Top hat. Endocervical curettage Description of Surgical Findings:: Lugol's resistance from 9 to 12 o'clock Type of Anesthesia:: Local MAC Anesthesiologist: Tobin Lim Specimen's removed: 1. ectocervix 3 to 9 o'clock anterior. 2. ectocervix 3 to 9 o'clock posterior. 3. top hat. 4. endocervical curettings Estimated Blood Loss (mL): 20 Fluids Replaced: 1000 ml Description of Procedure: 29-year-old para 3 with a history of HGSIL Pap. Colposcopy demonstrated ROSSANA 2. Counseled regarding management options and opted to proceed with LEEP. Procedural risks, benefits, indications and alternatives were reviewed. Procedure: The patient was brought to the operating room and signed was performed. She is placed in the dorsal supine position and induced under MAC. She is then repositioned to dorsal lithotomy. The perineum was prepped and draped in sterile fashion a insulated speculum was placed vaginally. Cervical block was placed with a total of 20 cc of 1% lidocaine with 1 and 200,000 epinep hrine concentration. Lugol's was placed over the ectocervix. LEEP was performed using 2 x 1 cm loop. A Top-Hat was performed as well. Cervical curettage was performed. The cervical excisional bed was electrocoagulated using a ball electrode. Monsel solution was applied with compression and there was excellent hemostasis. The procedure was complete. The speculum was removed from the vagina, the patient placed into dorsal supine position, awakened and transferred to the recovery room without complication. Sponge counts were correct x2. - Complications None - Admit VTE Documentation VTE Present on Admission: No VTE Mechan Device Prophylaxis: SCD's VTE Pharm Prophylaxis ordered?: No
== END 2020-03-14 19:00 | disposition home or self-care (01) ==
LOC: SDC 15:59 → AC 18:18
PROVIDERS: Referring Provider Obstetrics & Gynecology; Visit Provider Obstetrics & Gynecology
PROC: 0UBC7ZZ Excision of Cervix, Via Natural or Artificial Opening (ICD-10-PCS; CPT 57522; principal; 2020-03-14 13:10)
DX: D06.1 Carcinoma in situ of exocervix (principal); F17.200 Nicotine dependence, unspecified, uncomplicated; Z20.828 Contact with and (suspected) exposure to other viral communicable diseases
CPT/HCPCS: 57522; 36415; 84703; 85027; 85610; 86850; 86900; 86901; 87426; 88305; 88307; 88341; 88342; C9803; J7120; J2405

== ENCOUNTER → 2020-04-05 11:41 | Outpatient (CLI) | payer MEDICAID, SELFPAY ==
[2020-03-14 16:15] VITALS: BMI 34.0
[2020-04-05 15:23] LABS: HIV - WCH Non-Reactive (Nonreactive); Hepatitis B Surface Antibody Reactive; Hepatitis B Surface Antigen Non-Reactive (Nonreactive); Hepatitis C Antibody Non-Reactive (Nonreactive)
[2020-04-11 01:27] LABS: Rapid Plasmin Reagin (RPR) NONREACTIVE (NONREACTIVE)
== END ==
PROVIDERS: Visit Provider Obstetrics & Gynecology
DX: Z11.3 Encounter for screening for infections with a predominantly sexual mode of transmission (principal)
CPT/HCPCS: 36415; 86592; 86703; 86706; 86803; 87340

== ENCOUNTER → 2020-12-11 | Outpatient (CLI) | payer MEDICAID, SELFPAY ==
[2020-12-13 03:07] LABS: Chlamydia By Nucleic Acid AMP Negative (Negative)
[2020-12-13 08:33] LABS: Gonococcus By Nucleic Acid AMP Negative (Negative)
[2020-12-19 07:41] LABS: HPV APTIMA, High Risk Negative (Negative)
[2020-12-19 07:42] LABS: HPV Reflexed? YES, CHARGE PATIENT
== END | disposition home or self-care (01) ==
LOC: LABSPEC 11:41
PROVIDERS: Visit Provider Obstetrics & Gynecology
DX: Z12.4 Encounter for screening for malignant neoplasm of cervix (principal); Z11.3 Encounter for screening for infections with a predominantly sexual mode of transmission
CPT/HCPCS: 87491; 87591; 87624; 88175; G0145